=== PATIENT | female | born 1995 | race Caucasian/White ===

== ENCOUNTER 2016-03-12 07:01 | Emergency (ER) | payer OTHER ==
--- NOTE | 2016-03-12 07:16 | ED ---
Skin Complaint - History of Current Complaint Chief Complaint: EDRashSkinAbscess Time Seen by Provider: 03/12/16 07:11 Stated Complaint: BUG BITES ALL OVER Hx Obtained From: Patient, Family/Crust Sorter Hx Last Menstrual Period: 06/13/13 Onset/Duration: Started Days Ago - started last week with "bug bites" on L hip area, very itchy, went to [facility] and was told to use hydrocortisone cream and benadryl, she has use the cream but not the benadryl. those lesions are fading but new ones haev developed randomly on arms/legs/hips. No other family member with saem symps. pt denies new meds, personal care items (except laundry detergent), she is 4 mo preg Timing: Constant - itchy Pain Intensity: 0 Aggravating Symptom(s): Touch Alleviating Symptom(s): OTC Meds - hydrocortisone cream Associated Signs & Symptoms: Negative Related History: Other: - has not seen insects in house or on pets, no new bedding or furniture - Allergy/Home Medications Allergies/Adverse Reactions: Allergies Allergy/AdvReac Type Severity Reaction Status Date / Time Azithromycin [From Zithromax] Allergy Facial And Verified 03/12/16 07:04 Throat Swelling PMH/Surg Hx/FS Hx/Imm Hx Previously Healthy: Yes Endocrine/Hematology History: Denies: Hx Diabetes, Hx Thyroid Disease Cardiovascular History: Denies: Hx Congestive Heart Failure, Hx Hypertension Respiratory History: Denies: Hx Asthma History: Denies: Hx Renal Disease Psychiatric History: Denies: Hx Anxiety, Hx Depression - Immunization History Date of Tetanus Vaccine: UNK Date of Influenza Vaccine: never Infectious Disease History: No Infectious Disease History: Reports: Hx Shingles Denies: Traveled Outside the [place] in Last 30 Days - Family History Known Family History: Negative: Cardiac Disease, Hypertension, Diabetes - Social History Occupation: Unemployed Lives: With Family Alcohol Use: None Hx Substance Use: Yes 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 - Amount & Last Used: daily Hx Tobacco Use: Yes Smoking Status (MU): Heavy Every Day Tobacco Smoker Type: Cigarettes Amount Used/How Often: 1/2 PPD Have You Smoked in the Last Year: Yes Cessation Counseling: Patient Advised to Stop Review of Systems Constitutional: Negative Negative: Fever, Chills Cardiovascular: Negative Negative: Chest Pain Respiratory: Negative Negative: Shortness Of Breath, Cough Gastrointestinal: Negative Negative: Abdominal Pain Genitourinary: Negative Positive: Rash Neurological: Negative Negative: Headache Psychological: Normal All Other Systems Reviewed And Are Negative: Yes Physical Exam Triage Information Reviewed: Yes Vital Signs On Initial Exam: Initial Vitals Temp Pulse Resp BP Pulse Ox 97.1 F 104 16 142/70 100 03/12/16 07:04 03/12/16 07:04 03/12/16 07:04 03/12/16 07:04 03/12/16 07:04 Vital Signs Reviewed: Yes Appearance: Positive: Well-Appearing, No Pain Distress, Well-Nourished Skin: Positive: Warm, Skin Color Reflects Adequate Perfusion, Dry, Other - several individual slightyly raised, erythemic, pruritic circular lesions on legs, arms, hips in no pattern Respiratory/Lung Sounds: Positive: Clear to Auscultation Cardiovascular: Positive: Normal, RRR, Pulses are Symmetrical in both Upper and Lower Extremities Neurological: Positive: Normal, Sensory/Motor Intact, Alert, Oriented to Person Place, Time Psychiatric: Positive: Normal Diagnostics - Vital Signs Vital Signs Temp Pulse Resp BP Pulse Ox 03/12/16 07:04 97.1 F 104 16 142/70 100 - Laboratory Lab Statement: Any lab studies that have been ordered have been reviewed, and results considered in the medical decision making process. Re-Evaluation - Re-Evaluation First Eval Re-Evaluation Time: 08:30 Change: Improved - decreased itching, no new lesions Course/Dx - Differential Diagnoses - Skin Complaint Differential Diagnoses: Contact Dermatitis, Drug Rash, Local Allergic Reaction, Scabies, Urticaria, Other - insect bites - Diagnoses Provider Diagnoses: Allergic reaction Discharge - Discharge Plan Condition: Improved Disposition: HOME Patient Education Materials: Urticaria (ED) Additional Instructions: you may use 25-50mg of benadryl every 6 hours as needed for itchy rash Continue hydrocortisone cream as directed consider changing laundry soap If problem worsens, return here or OB office as needed
[2016-03-12] MEDS ORDERED: diPHENhydraMINE PO* 25 MG PO ONE (07:18)
[2016-03-12 08:55] VITALS: BP 138/67
== END 2016-03-12 08:54 | disposition home or self-care (01) ==
LOC: ED 07:01
DX: T78.40XA Allergy, unspecified, initial encounter (principal); X58.XXXA Exposure to other specified factors, initial encounter; R21 Rash and other nonspecific skin eruption
CPT/HCPCS: 99281; A9270-GY

== ENCOUNTER 2016-03-19 16:40 | Emergency (ER) | payer OTHER ==
[2016-03-19] MEDS ORDERED: Acetaminophen TAB* 325 MG PO ONE (17:26)
--- NOTE | 2016-03-19 17:34 | ED ---
Throat Pain/Nasal Congestion - HPI Summary HPI Summary: 17 week pt here w/ URI sx x 5 days. Started as dry cough and progressed to JANE, mild ST, head/nasal congestion. She has had some Rt sided otalgia past couple of days - worse w/ coughing. Denies fever, chills, N/V/D, ab pain. Props herself up at night. Called mushroom spawn maker who told her she could take robitussin w/ brief relief. Was also told she can take Sudafed and tylenol but has not tried these yet. Pt typically smokes but hasn't since sick - hurts to do so. - History of Current Complaint Chief Complaint: EDUpperRespComplaint Time Seen by Provider: 03/19/16 17:03 Hx Obtained From: Patient, Family/Toll Relief Operator - male partner - Allergies/Home Medications Allergies/Adverse Reactions: Allergies Allergy/AdvReac Type Severity Reaction Status Date / Time Azithromycin [From Zithromax] Allergy Facial And Verified 03/19/16 16:51 Throat Swelling PMH/Surg Hx/FS Hx/Imm Hx Previously Healthy: Yes Endocrine/Hematology History: Denies: Hx Diabetes, Hx Thyroid Disease Cardiovascular History: Denies: Hx Congestive Heart Failure, Hx Hypertension Respiratory History: Denies: Hx Asthma History: Denies: Hx Renal Disease Psychiatric History: Denies: Hx Anxiety, Hx Depression - Immunization History Date of Tetanus Vaccine: UNK Date of Influenza Vaccine: never Infectious Disease History: No Infectious Disease History: Reports: Hx Shingles Denies: Traveled Outside the [place] in Last 30 Days - Family History Known Family History: Negative: Cardiac Disease, Hypertension, Diabetes - Social History Occupation: Unemployed Lives: With Family Alcohol Use: None Hx Substance Use: No Substance Use Type: Reports: None Substance Use Comment - Amount & Last Used: daily Hx Tobacco Use: Yes Smoking Status (MU): Light Every Day Tobacco Smoker Type: Cigarettes Amount Used/How Often: 1/2 PPD Have You Smoked in the Last Year: Yes Review of Systems Constitutional: Negative ENT: Other - see HPI Negative: Chest Pain Positive: Cough Gastrointestinal: Negative Positive: no symptoms reported Musculoskeletal: Negative Negative: Rash Neurological: Negative Psychological: Normal All Other Systems Reviewed And Are Negative: Yes Physical Exam Triage Information Reviewed: Yes Vital Signs On Initial Exam: Initial Vitals Temp Pulse Resp BP Pulse Ox 97.3 F 100 16 135/69 100 03/19/16 16:46 03/19/16 16:46 03/19/16 16:46 03/19/16 16:46 03/19/16 16:46 Vital Signs Reviewed: Yes Appearance: Positive: Well-Appearing, No Pain Distress, Well-Nourished Skin: Positive: Warm - no rash, Dry Head/Face: Positive: Normal Head/Face Inspection - sinuses NTTP Eyes: Positive: Normal, EOMI, Conjunctiva Clear. Negative: Discharge ENT: Positive: Hearing grossly normal, Pharynx normal, Nasal congestion, TMs normal. Negative: Tonsillar swelling, Tonsillar exudate Neck: Positive: Supple, Nontender, No Lymphadenopathy Respiratory/Lung Sounds: Positive: Clear to Auscultation, Breath Sounds Present. Negative: Rales, Rhonchi, Stridor, Wheezes Cardiovascular: Positive: Normal, RRR, S1, S2. Negative: Murmur, Rub Abdomen Description: Positive: Nontender, No Organomegaly, Soft Bowel Sounds: Positive: Present Musculoskeletal: Positive: Normal, Strength/ROM Intact Neurological: Positive: Normal, Sensory/Motor Intact, Alert, Oriented to Person Place, Time, CN Intact II-III Psychiatric: Positive: Normal Diagnostics - Vital Signs Vital Signs Temp Pulse Resp BP Pulse Ox 03/19/16 16:46 97.3 F 100 16 135/69 100 - Laboratory Lab Statement: Any lab studies that have been ordered have been reviewed, and results considered in the medical decision making process. EENT Course/Dx - Course Course Of Treatment: FHR 138 on U/S performed by U/S tech. Pt d/c'd w/ supportive care and reviewed danger s/sx of when to return to ED. Pt and partner voice understanding. - Diagnoses Provider Diagnoses: Viral URI Discharge - Discharge Plan Condition: Stable Disposition: HOME Patient Education Materials: (ED), Upper Respiratory Infection (ED) Referrals: [facility] [Outside] Additional Instructions: You appear to have a viral URI - this may be treated with supportive care. You may try the following to improve symptoms: *Acetaminophen 650mg every 6 hours as needed for pain *Sudafed as recommended by mushroom spawn maker *Nasal wash (netti pot) & throat gargle 2 x day with 8 ounces of warm water + 1/ 4 teaspoon of salt *Warm moist compress along neck for soreness *Drink 60+ ounces of water daily *Sleep 8+ hours per night *Avoid Dairy and sugar *Hot herbal/decaf tea with lemon & honey *Chicken broth (preferably organic, free range chicken) *Humidifier in house, but especially near bed at night *Try a facial steam - ROLA VAPOR RUB MAY BE HARMFUL DURING - CHECK WITH FINAL ASSEMBLY WORKER BEFORE USING Consider taking Vitamin C 1,000mg every day during illness *If you develop worsening of ear pain, drainage from ear, fever, chills, intractable headache, vomiting, diarrhea, ab pain, vaginal bleeding, return to ED
[2016-03-19 19:05] VITALS: BP 110/60
== END 2016-03-19 19:03 | disposition home or self-care (01) ==
LOC: ED 16:40
DX: J06.9 Acute upper respiratory infection, unspecified (principal); R05 Cough; R51 Headache; F17.210 Nicotine dependence, cigarettes, uncomplicated
CPT/HCPCS: 99282; A9270-GY

== ENCOUNTER 2016-04-25 19:56 | Emergency (ER) | payer MEDICAID, OTHER ==
[2016-04-25] MEDS ORDERED: Morphine INJ* 4 MG/ML 1 ML CARPUJECT IV ONE ×2 (20:30)
[2016-04-25] MEDS ORDERED: Morphine INJ* 4 MG/ML 1 ML CARPUJECT ONE ×2 (20:33)
[2016-04-25 20:38] LABS: Hematocrit 40 % (35-47); Hemoglobin 13.5 g/dl (12.0-16.0); Mean Corpuscular HGB Conc 33 g/dl (31-36); Mean Corpuscular Hemoglobin 32 pg (27-31); Mean Corpuscular Volume 94 fL (80-97); Mean Platelet Volume 9 um3 (7.4-10.4); Red Blood Count 4.27 10^6/ul (4.0-5.4); Red Cell Distribution Width 13 % (10.5-15); White Blood Count 13.8 10^3/ul (3.5-10.8)
[2016-04-25 20:49] LABS: Albumin 3.5 g/dL (3.2-5.2); BUN/Creatinine Ratio 11.5 (8-20); C Reactive Protein 19.72 mg/L (< 5.00); Calcium 8.9 mg/dL (8.6-10.3); EGFR African American 157.7 (>60); EGFR Non-African American 122.6 (>60); Globulin 3.4 g/dL (2-4); Potassium 4.1 mmol/L (3.5-5.0); Total Bilirubin 0.2 mg/dL (0.2-1.0); Total Protein 6.9 g/dL (6.4-8.9)
[2016-04-25] MEDS ORDERED: Morphine INJ* 2 MG/ML 1 ML CARPUJECT IV ONE (21:37)
--- NOTE | 2016-04-25 21:59 | RAD ---
Indication: , right lower quadrant pain. COMPARISON: Comparison is made with a prior study from December 24, 2015. TECHNIQUE: Multiple real-time transabdominal images of the pelvis were obtained. FINDINGS: This exam demonstrates a single intrauterine in the cephalic presentation. cardiac activity and limb motion are noted. The heart rate was 139 beats per minute. The placenta was located along the anterior aspect of the body and fundus of the uterus. There is no placenta previa. The amniotic fluid volume appeared to be within normal limits. The cervix measured 3.3 cm in length. Biparietal diameter (cm): 5.63 23 weeks 2 days Head circumference (cm): 20.59 22 weeks 5 days Abdominal circumference (cm): 17.65 22 weeks 4 days Femur length (cm): 4.08 23 weeks 2 days The composite estimated gestational age was 22 weeks 6 days. The estimated gestational age by the prior ultrasound study is 22 weeks 4 days. Therefore there has been appropriate interval growth. The estimated date of delivery is August 22, 2016. The estimated weight at this time is 540 grams plus or minus 79 grams. The anatomy was not examined on this limited urgent study. Images of the right lower quadrant were obtained. The appendix was not visualized. The right ovary measured 4.3 x 2.0 x 2.1 cm. There is normal vascular flow within the right ovary. The left ovary measured 2.4 x 0.9 x 2.1 cm. The patient was not compliant for the Doppler study of the left ovary. The left ovary appear normal. No free to peritoneal fluid is noted. IMPRESSION: 1. THERE IS A SINGLE INTRAUTERINE IN THE CEPHALIC PRESENTATION WITH A COMPOSITE ESTIMATED GESTATIONAL AGE OF 22 WEEKS 6 DAYS DEMONSTRATING APPROPRIATE INTERVAL GROWTH FROM THE PRIOR STUDY. 2. THE APPENDIX WAS NOT VISUALIZED. 3. THE OVARIES APPEAR TO BE WITHIN NORMAL LIMITS.
[2016-04-25 22:41] LABS: Urine Bacteria Absent (Absent); Urine Bilirubin Negative (Negative); Urine Glucose Negative (Negative); Urine Nitrite Negative (Negative)
--- NOTE | 2016-04-25 22:52 | RAD ---
INDICATION: Right flank abdominal pain. COMPARISON: Comparison is made with a prior CT of the abdomen and pelvis from July 30, 2015. TECHNIQUE: Multiple real-time images of the right kidney were obtained. FINDINGS: The right kidney is normal in size shape and echogenicity. The kidney measured 11.0 x 5.4 x 7.0 cm. There is dilatation of the right renal calyces and pelvis consistent with mild hydronephrosis. Note is made of a right ureteral jet within the bladder. No calculi are seen. IMPRESSION: MILD RIGHT HYDRONEPHROSIS.
[2016-04-25] MEDS ORDERED: Cephalexin CAP* 500 MG PO ONE (23:30)
[2016-04-25 23:56] VITALS: BP 135/62
--- NOTE | 2016-04-26 00:23 | ED ---
- HPI Summary HPI Summary: Patient is a 22 week female arrives to ED with CC of RLQ pain. Patient is very distressed on arrival and crying. She is unable to communicate and history is obtained from mother and boyfriend. Mother notes patient awoke from a nap with 10/10 severe right lower quadrant pain which has been constant. She denied any urinary symptoms, epigastric or suprapubic pain, fever, JANE, N/V /C/D. Patient is obese but otherwise healthy. Denies drug use. Patient denies surgical history. - History of Current Complaint Chief Complaint: EDAbdPain Stated Complaint: ABD PAIN/ 23 WKS PREG Time Seen by Provider: 04/25/16 20:11 Hx Obtained From: Patient Chief Complaint: Pain Onset/Duration: Started Minutes Ago Timing: Constant Severity: Severe Current Severity: Severe Pain Intensity: 10 Location of Pain: Right Side Character: Cramping, Tearing Aggravating Factors: Movement Associated Signs and Symptoms: Positive: Back Pain - Assessment Hx Now: No - Allergies/Home Medications Allergies/Adverse Reactions: Allergies Allergy/AdvReac Type Severity Reaction Status Date / Time Azithromycin [From Zithromax] Allergy Facial And Verified 04/25/16 20:01 Throat Swelling PMH/Surg Hx/FS Hx/Imm Hx Previously Healthy: Yes Endocrine/Hematology History: Denies: Hx Diabetes, Hx Thyroid Disease Cardiovascular History: Denies: Hx Congestive Heart Failure, Hx Hypertension Respiratory History: Denies: Hx Asthma History: Denies: Hx Renal Disease Psychiatric History: Denies: Hx Anxiety, Hx Depression - Immunization History Date of Tetanus Vaccine: UNK Date of Influenza Vaccine: never Infectious Disease History: No Infectious Disease History: Reports: Hx Shingles Denies: Traveled Outside the [place] in Last 30 Days - Family History Known Family History: Negative: Cardiac Disease, Hypertension, Diabetes - Social History Occupation: Unemployed Lives: With Family Alcohol Use: None Hx Substance Use: No Substance Use Type: Reports: None Substance Use Comment - Amount & Last Used: daily Hx Tobacco Use: Yes Smoking Status (MU): Light Every Day Tobacco Smoker Type: Cigarettes Amount Used/How Often: 1/2 PPD Have You Smoked in the Last Year: Yes Review of Systems Constitutional: Negative ENT: Negative Cardiovascular: Negative Respiratory: Negative Positive: Abdominal Pain Positive: no symptoms reported, see HPI Musculoskeletal: Negative Skin: Negative Positive: Anxious All Other Systems Reviewed And Are Negative: Yes Physical Exam - Physical Exam Triage Information Reviewed: Yes Vital Signs Reviewed: Yes Appearance: Positive: Ill-Appearing, Pain Distress, Obese Skin: Positive: Warm, Skin Color Reflects Adequate Perfusion, Diaphoretic Head/Face: Positive: Normal Head/Face Inspection Eyes: Positive: GLENN, Conjunctiva Clear Neck: Positive: Supple, No Lymphadenopathy Respiratory/Lung Sounds: Positive: Clear to Auscultation Cardiovascular: Positive: RRR Abdomen Description: Positive: Soft, CVA Tenderness (R), Other: - tenderness over RLQ Bowel Sounds: Positive: Present Musculoskeletal: Positive: Normal, Strength/ROM Intact Neurological: Positive: Sensory/Motor Intact, Alert, Oriented to Person Place, Time, Speech Normal Psychiatric: Positive: Normal AVPU Assessment: Alert Diagnostics - Vital Signs Vital Signs Temp Pulse Resp BP Pulse Ox 04/25/16 23:54 99.2 F 78 16 135/62 04/25/16 21:56 20 04/25/16 21:00 72 98 04/25/16 20:35 20 04/25/16 20:07 84 121/57 98 04/25/16 20:03 87 98 04/25/16 20:01 99.2 F 80 18 118/72 98 - Laboratory Lab Results: Lab Results 04/25/16 04/25/16 04/25/16 Range/Units 20:14 20:14 22:20 WBC 13.8 H (3.5-10.8) 10^3/ul RBC 4.27 (4.0-5.4) 10^6/ul Hgb 13.5 (12.0-16.0) g/dl Hct 40 (35-47) % MCV 94 (80-97) fL MCH 32 H (27-31) pg MCHC 33 (31-36) g/dl RDW 13 (10.5-15) % Plt Count 189 (150-450) 10^3/ul MPV 9 (7.4-10.4) um3 Neut % (Auto) 71.2 (38-83) % Lymph % (Auto) 22.0 L (25-47) % [place] % (Auto) 5.6 (1-9) % Eos % (Auto) 0.9 (0-6) % Baso % (Auto) 0.3 (0-2) % Absolute Neuts (auto) 9.8 H (1.5-7.7) 10^3/ul Absolute Lymphs (auto) 3.0 (1.0-4.8) 10^3/ul Absolute Monos (auto) 0.8 (0-0.8) 10^3/ul Absolute Eos (auto) 0.1 (0-0.6) 10^3/ul Absolute Basos (auto) 0 (0-0.2) 10^3/ul Absolute Nucleated RBC 0.01 10^3/ul Nucleated RBC % 0 Sodium 131 L (133-145) mmol/L Potassium 4.1 (3.5-5.0) mmol/L Chloride 102 (101-111) mmol/L Carbon Dioxide 25 (22-32) mmol/L Anion Gap 4 (2-11) mmol/L BUN 7 (6-24) mg/dL Creatinine 0.61 (0.51-0.95) mg/dL Est GFR ( Amer) 157.7 (>60) Est GFR (Non-Af Amer) 122.6 (>60) BUN/Creatinine Ratio 11.5 (8-20) Glucose 86 (70-100) mg/dL Calcium 8.9 (8.6-10.3) mg/dL Total Bilirubin 0.20 (0.2-1.0) mg/dL AST 8 L (13-39) U/L ALT 7 (7-52) U/L Alkaline Phosphatase 81 (34-104) U/L Total Creatine Kinase 20 (10-223) U/L C-Reactive Protein 19.72 H (< 5.00) mg/L Total Protein 6.9 (6.4-8.9) g/dL Albumin 3.5 (3.2-5.2) g/dL Globulin 3.4 (2-4) g/dL Albumin/Globulin Ratio 1.0 (1-3) Lipase 13 (11.0-82.0) U/L Urine Color Yellow Urine Appearance Cloudy Urine pH 6.0 (5-9) Ur Specific [place] 1.017 (1.010-1.030) Urine Protein Negative (Negative) Urine Ketones Negative (Negative) Urine Blood 1+ H (Negative) Urine Nitrate Negative (Negative) Urine Bilirubin Negative (Negative) Urine Urobilinogen Negative (Negative) Ur Leukocyte Esterase 1+ H (Negative) Urine WBC (Auto) 1+(6-10/hpf) H (Absent) Urine RBC (Auto) 3+(>10/hpf) H (Absent) Ur Squamous Epith Cells Present H (Absent) Urine Bacteria Absent (Absent) Urine Glucose Negative (Negative) Result Diagrams: 04/25/16 20:14 04/25/16 20:14 Lab Statement: Any lab studies that have been ordered have been reviewed, and results considered in the medical decision making process. - Ultrasound No standard instances Ultrasound Interpretation: Positive (See Comments) Ultrasound Interpretation Completed By: Radiologist - Transvaginal US: IMPRESSION: 1. THERE IS A SINGLE INTRAUTERINE IN THE CEPHALIC PRESENTATION WITH A COMPOSITE ESTIMATED GESTATIONAL AGE OF 22 WEEKS 6 DAYS DEMONSTRATING APPROPRIATE INTERVAL GROWTH FROM THE PRIOR STUDY. 2. THE APPENDIX WAS NOT VISUALIZED. 3. THE OVARIES APPEAR TO BE WITHIN NORMAL LIMITS. Renal US : IMPRESSION: MILD RIGHT HYDRONEPHROSIS. Course/Dx - Course Course Of Treatment: Patient yelling in pain for 1 hour after arrival despite 4mg morphine. 2mg morphine more given then Lars consult at 9:30p via phone. US shows IUP 22 weeks 6 days. Renal US shows mild right sided hydronephrosis consistent with . UA shows 1+ leuks, 3+ RBC. Will treat with keflext 500mg QID x [address] Sousa, OBGYN. Dr. Sousa consulted at 11pm. Patient is feeling better and ready to be DC'd home with urine strain and abx. Renal stone not visualized but based on patients symptoms of CVA tenderness and RLQ, this is likely. OB follow up. Patient agrees. - Differential Diagnosis/HQI/PQRI: Threatened , Ovarian Cyst, Ovarian Torsion, Renal Colic, UTI - Diagnoses Provider Diagnoses: Right lower quadrant abdominal pain Discharge - Discharge Plan Condition: Stable Disposition: HOME Prescriptions: Cephalexin CAP* [Keflex CAP*] 500 mg PO QID #28 cap Patient Education Materials: Hydronephrosis (ED), Urinary Tract Infection in (ED) Referrals: No Primary Care Phys,NOPCP [Primary Care Provider] - Additional Instructions: Dx. Urinary Tract Infection Drink plenty of fluids. Supplement with cranberry or danielle juice. You may also take an over the counter cranberry supplement. If you have any questions about this, you may ask your pharmacist. If your symptoms have not improved in 1-2 days, if you develop fever, sweats or chills, please go to your emergency room, or call your PCP. Antibiotics were prescribed to you. Please take as directed. Supplement with over the counter probiotics on the opposite schedule of your antibiotic to prevent secondary infections. Do not take together as they may counteract each other.
== END 2016-04-25 23:54 | disposition home or self-care (01) ==
LOC: ED 19:56
DX: N13.30 Unspecified hydronephrosis (principal); R10.31 Right lower quadrant pain; M54.9 Dorsalgia, unspecified; F41.9 Anxiety disorder, unspecified; F17.209 Nicotine dependence, unspecified, with unspecified nicotine-induced disorders
CPT/HCPCS: 36415; 76775; 76815; 80053; 81003; 81015; 82550; 83690; 85025; 86140; 87086; 96374; 96376; 99283; A9270-GY; J2270

== ENCOUNTER 2016-06-28 12:25 | Emergency (ER) | payer OTHER ==
[2016-06-28 12:31] VITALS: BP 132/71
== END 2016-06-28 14:08 | disposition left against medical advice (07) ==
LOC: ED 12:25
DX: M79.602 Pain in left arm (principal); Z53.21 Procedure and treatment not carried out due to patient leaving prior to being seen by health care provider

== ENCOUNTER 2016-07-07 01:15 | Emergency (ER) | payer OTHER ==
--- NOTE | 2016-07-07 01:57 | ED ---
Chava Smith Benjamin, scribed for Tru Cortez MD on 07/07/16 at 0156 . GI/ HPI - HPI Summary HPI Summary: 34 weeks 21yo female c/o hemorrhoids. Pt has had hemorrhoids for 2 months now and came to ED tonight because her pain has worsened. - History of Current Complaint Chief Complaint: EDRectalPain Time Seen by Provider: 07/07/16 01:48 Stated Complaint: HEMMOROIDS Hx Obtained From: Patient Onset/Duration: Started Weeks Ago, Worse Since - tonight Timing: Constant Severity: Mild Current Severity: Moderate Pain Intensity: 9 Location of Pain: Rectal Associated Signs and Symptoms: Positive: Negative - Allergy/Home Medications Allergies/Adverse Reactions: Allergies Allergy/AdvReac Type Severity Reaction Status Date / Time Azithromycin [From Zithromax] Allergy Facial And Verified 07/07/16 01:19 Throat Swelling PMH/Surg Hx/FS Hx/Imm Hx Endocrine/Hematology History: Denies: Hx Diabetes, Hx Thyroid Disease Cardiovascular History: Denies: Hx Congestive Heart Failure, Hx Hypertension Respiratory History: Denies: Hx Asthma History: Denies: Hx Renal Disease Psychiatric History: Denies: Hx Anxiety, Hx Depression - Immunization History Date of Tetanus Vaccine: UNK Date of Influenza Vaccine: never Infectious Disease History: No Infectious Disease History: Reports: Hx Shingles Denies: Traveled Outside the [place] in Last 30 Days - Family History Known Family History: Negative: Cardiac Disease, Hypertension, Diabetes - Social History Occupation: Employed Full-time Lives: With Family Alcohol Use: None Hx Substance Use: No Substance Use Type: Reports: None Substance Use Comment - Amount & Last Used: daily Hx Tobacco Use: Yes Smoking Status (MU): Former Smoker Type: Cigarettes Amount Used/How Often: 1/2 PPD Have You Smoked in the Last Year: Yes Review of Systems Constitutional: Negative Eyes: Negative ENT: Negative Cardiovascular: Negative Respiratory: Negative Positive: Other - hemorrhoids Genitourinary: Other - 34 weeks Musculoskeletal: Negative Skin: Negative Neurological: Negative Psychological: Normal All Other Systems Reviewed And Are Negative: Yes Physical Exam Triage Information Reviewed: Yes Vital Signs On Initial Exam: Initial Vitals Temp Pulse Resp BP Pulse Ox 97.2 F 109 18 148/71 99 07/07/16 01:19 07/07/16 01:19 07/07/16 01:19 07/07/16 01:19 07/07/16 01:19 Vital Signs Reviewed: Yes Appearance: Positive: Well-Appearing, No Pain Distress Skin: Positive: Warm Head/Face: Positive: Normal Head/Face Inspection Eyes: Positive: GLENN ENT: Positive: Hearing grossly normal Respiratory/Lung Sounds: Positive: Breath Sounds Present Abdomen Description: Positive: Other: - external non thrombosed hemmorhoids Neurological: Positive: Sensory/Motor Intact, Normal Gait Diagnostics - Vital Signs Vital Signs Temp Pulse Resp BP Pulse Ox 07/07/16 01:19 97.2 F 109 18 148/71 99 - Laboratory Lab Statement: Any lab studies that have been ordered have been reviewed, and results considered in the medical decision making process. GIGU Course/Dx - Diagnoses Provider Diagnoses: Hemorrhoids Discharge - Discharge Plan Condition: Stable Disposition: HOME Prescriptions: Hydrocortisone SUPP* [Anusol HC Supp*] 25 mg CA BID #10 supp Patient Education Materials: Hemorrhoids (ED) Referrals: Raya Spence MD [Primary Care Provider] - The documentation as recorded by the Chava tatum Benjamin accurately reflects the service I personally performed and the decisions made by Dana esqueda David, MD.
[2016-07-07 03:20] VITALS: BP 126/69
== END 2016-07-07 02:00 | disposition home or self-care (01) ==
LOC: ED 01:15
DX: K64.9 Unspecified hemorrhoids (principal); Z87.891 Personal history of nicotine dependence
CPT/HCPCS: 99282

== ENCOUNTER 2016-08-09 20:30 | Emergency (ER) | payer OTHER ==
[2016-08-09 20:35] VITALS: BP 159/87
--- NOTE | 2016-08-09 20:59 | ED ---
vahe Smith Timothy, scribed for Tru Cortez MD on 08/09/16 at 2058 . Medical Screening - HPI Summary HPI Summary: Josi Beyer is a 21 yo female presenting to [facility] 39 weeks with intermittent 10/10 abdominal and back pain every few minutes since 1400 today. Her MHx includes shingles and tobacco use, as well as current 39 week . - History of Current Complaint Chief Complaint: EDAbdPain Stated Complaint: 39 WEEKS IN LABOR Time Seen by Provider: 08/09/16 20:31 Onset/Duration: Started Hours Ago, Atraumatic, Still Present Severity: moderate Associated Signs and Symptoms: Other - intermittent every few minutes, 39 weeks PMH/Surg Hx/FS Hx/Imm Hx Endocrine/Hematology History: Denies: Hx Diabetes, Hx Thyroid Disease Cardiovascular History: Denies: Hx Congestive Heart Failure, Hx Hypertension Respiratory History: Denies: Hx Asthma History: Denies: Hx Renal Disease Psychiatric History: Denies: Hx Anxiety, Hx Depression - Immunization History Date of Tetanus Vaccine: UNK Date of Influenza Vaccine: never Infectious Disease History: Reports: Hx Shingles Denies: Traveled Outside the [place] in Last 30 Days - Family History Known Family History: Negative: Cardiac Disease, Hypertension, Diabetes - Social History Alcohol Use: None Hx Substance Use: No Substance Use Type: Reports: None Substance Use Comment - Amount & Last Used: daily Hx Tobacco Use: Yes Smoking Status (MU): Heavy Every Day Tobacco Smoker Type: Cigarettes Amount Used/How Often: 1/2 PPD Have You Smoked in the Last Year: Yes Review of Systems Constitutional: Negative Eyes: Negative ENT: Negative Cardiovascular: Negative Respiratory: Negative Positive: Abdominal Pain - intermittent abd and back pain every few minutes Genitourinary: Negative Musculoskeletal: Negative Skin: Negative Neurological: Negative Psychological: Normal All Other Systems Reviewed And Are Negative: Yes Physical Exam Triage Information Reviewed: Yes Vital Signs On Initial Exam: Initial Vitals Temp Pulse Resp BP Pulse Ox 97.3 F 110 18 159/87 98 08/09/16 20:32 08/09/16 20:32 08/09/16 20:32 08/09/16 20:32 08/09/16 20:32 Vital Signs Reviewed: Yes Appearance: Positive: Well-Appearing, Pain Distress - crampy abd pain Diagnostics - Vital Signs Vital Signs Temp Pulse Resp BP Pulse Ox 08/09/16 20:32 97.3 F 110 18 159/87 98 - Laboratory Lab Statement: Any lab studies that have been ordered have been reviewed, and results considered in the medical decision making process. Course/Dx - Course Assessment/Plan: Josi Dwyer is a 21 yo female 39 weeks presenting to [facility] with 10/10 intermittent back and abd pain every few minutes. Pt medication list reviewed this visit. After clinical examination and discussion with Dr. Leonard, she will be sent to L&D - Diagnoses Provider Diagnoses: Labor abnormal - Physician Notifications Discussed Care Of Patient With: Desean Leonard - Discussed Pt condition, recommends immediate admission for labor Time Discussed With Above Provider: 20:35 Discharge - Discharge Plan Condition: Stable Disposition: OTHER Discharge Disposition Comment: L&D Referrals: Raya Spence MD [Primary Care Provider] - The documentation as recorded by the vahe tatum Timothy accurately reflects the service I personally performed and the decisions made by me, Tru Cortez MD.
== END 2016-08-09 21:00 ==
LOC: ED 20:30
DX: O62.9 Abnormality of forces of labor, unspecified (principal); R10.9 Unspecified abdominal pain; Z3A.39 39 weeks gestation of pregnancy; F17.210 Nicotine dependence, cigarettes, uncomplicated
CPT/HCPCS: 99281

== ENCOUNTER 2016-08-30 19:00 | Inpatient (IN) | payer OTHER ==
[2016-08-30] MEDS ORDERED: Dinoprostone* 10 MG VAG.SUPP VAGINAL ONE (19:04)
[2016-08-30] MEDS ORDERED: Zolpidem TAB* 5 MG PO PRN (19:50)
[2016-08-31] MEDS ORDERED: Promethazine INJ(RESTRICTED)* 25 MG/ML 1 ML VIAL IV ONE (02:57)
[2016-08-31] MEDS ORDERED: Nalbuphine* 20 MG/ML 1 ML VIAL IM ONE (02:57)
[2016-08-31] MEDS ORDERED: Promethazine INJ(RESTRICTED)* 25 MG/ML 1 ML VIAL IM ONE (02:57)
[2016-08-31] MEDS ORDERED: Nalbuphine* 20 MG/ML 1 ML VIAL IV ONE (02:57)
[2016-08-31] MEDS ORDERED: Nalbuphine* 20 MG/ML 1 ML VIAL ONE (03:02)
[2016-08-31] MEDS ORDERED: Promethazine INJ(RESTRICTED)* 25 MG/ML 1 ML VIAL ONE (03:02)
[2016-08-31] MEDS ORDERED: Lidocaine 1% MPF* 2 ML VIAL ONE (07:39)
[2016-08-31] MEDS ORDERED: Oxytocin in LR* 20 UNITS/1,000 ML BAG IVPB SCH ×3 (08:00→20:19)
[2016-08-31 08:13] LABS: Hematocrit 41 % (35-47); Hemoglobin 13.4 g/dl (12.0-16.0); Mean Corpuscular HGB Conc 33 g/dl (31-36); Mean Corpuscular Hemoglobin 30 pg (27-31); Mean Corpuscular Volume 92 fL (80-97); Mean Platelet Volume 10 um3 (7.4-10.4); Red Blood Count 4.43 10^6/ul (4.0-5.4); Red Cell Distribution Width 14 % (10.5-15); White Blood Count 13.6 10^3/ul (3.5-10.8)
[2016-08-31] MEDS ORDERED: OBEPIDURAL* 250 ML ONE (14:04)
[2016-08-31] MEDS ORDERED: Bupivacaine 0.25% SDV* 30 ML ONE (14:16)
[2016-08-31] MEDS ORDERED: fentaNYL* 50 MCG/ML 2 ML VIAL (100 MCG VIAL) ONE (14:24)
[2016-08-31] MEDS ORDERED: Famotidine TAB* 20 MG PO PRN (14:39)
[2016-08-31] MEDS ORDERED: Sodium Citrate/Citric Acid* 15 ML UDC PO PRN (14:39)
[2016-08-31] MEDS ORDERED: EPHEDrine (Pressors)* 50 MG/ML VIAL IV PUSH PRN (14:39)
[2016-08-31] MEDS ORDERED: Phenylephrine IV* 40 MCG/ML 10 ML SYRINGE IV PUSH PRN (14:39)
[2016-08-31] MEDS ORDERED: OBEPIDURAL* 250 ML EPIDURAL SCH (15:00)
[2016-08-31] MEDS ORDERED: Acetaminophen TAB* 325 MG PO PRN (20:16)
[2016-08-31] MEDS ORDERED: Glycerin ADULT SUPP PR PRN (20:16)
[2016-08-31] MEDS ORDERED: Dibucaine 1% 28.35 GM TUBE PR PRN (20:16)
[2016-08-31] MEDS ORDERED: oxyCODONE/Acetamin 5/325 MG* TAB PO PRN (20:16)
[2016-08-31] MEDS ORDERED: Witch Hazel PAD* JAR TOPICAL PRN (20:16)
[2016-08-31] MEDS: Ibuprofen TAB* 600 MG PO PRN (22:29)
[2016-08-31] MEDS: Docusate CAP* 100 MG PO SCH (22:29)
[2016-09-01 06:51] LABS: Hematocrit 35 % (35-47); Hemoglobin 11.7 g/dl (12.0-16.0); Mean Corpuscular HGB Conc 33 g/dl (31-36); Mean Corpuscular Hemoglobin 31 pg (27-31); Mean Corpuscular Volume 92 fL (80-97); Mean Platelet Volume 9 um3 (7.4-10.4); Red Blood Count 3.82 10^6/ul (4.0-5.4); Red Cell Distribution Width 14 % (10.5-15); White Blood Count 14.8 10^3/ul (3.5-10.8)
[2016-09-01] MEDS: Ibuprofen TAB* 600 MG PO PRN ×2 (06:58→19:29)
[2016-09-01] MEDS: Docusate CAP* 100 MG PO SCH ×2 (07:00→19:30)
[2016-09-01] MEDS ORDERED: Ferrous Gluconate TAB* 324 MG TAB PO SCH (09:00)
[2016-09-02] MEDS: Ibuprofen TAB* 600 MG PO PRN ×2 (02:49→09:17)
[2016-09-02 08:22] VITALS: BP 111/51
[2016-09-02] MEDS: Docusate CAP* 100 MG PO SCH (09:17)
== END 2016-09-02 11:00 | disposition home or self-care (01) | DRG 560 ==
LOC: MCHOBOUT 19:00 → MCHOB 19:06
PROVIDERS: ADMIT Nurse Practitioner; ATTEND Nurse Practitioner
PROC: 4A1HX4Z Monitoring of Products of Conception, Cardiac Electrical Activity, External Approach (ICD-10-PCS; principal; 2016-08-30)
PROC: 10E0XZZ Delivery of Products of Conception, External Approach (ICD-10-PCS; 2016-08-30)
PROC: 10907ZC Drainage of Amniotic Fluid, Therapeutic from Products of Conception, Via Natural or Artificial Opening (ICD-10-PCS; 2016-08-30)
PROC: 10907ZC Drainage of Amniotic Fluid, Therapeutic from Products of Conception, Via Natural or Artificial Opening (ICD-10-PCS; 2016-08-30)
PROC: 3E033VJ Introduction of Other Hormone into Peripheral Vein, Percutaneous Approach (ICD-10-PCS; 2016-08-30)
DX: O48.0 Post-term pregnancy (principal); F17.200 Nicotine dependence, unspecified, uncomplicated; Z3A.41 41 weeks gestation of pregnancy; O69.81X0 Labor and delivery complicated by cord around neck, without compression, not applicable or unspecified; O99.334 Smoking (tobacco) complicating childbirth; Z37.0 Single live birth; O75.89 Other specified complications of labor and delivery; K64.9 Unspecified hemorrhoids; Z88.1 Allergy status to other antibiotic agents; O71.82 Other specified trauma to perineum and vulva
CPT/HCPCS: 36415; 85025; 85027; 86850; 86900; 86901; A9270-GY; J2300; J2550; J3010

== ENCOUNTER 2016-10-01 03:06 | Emergency (ER) | payer OTHER ==
[2016-10-01 03:10] VITALS: BP 119/70
== END 2016-10-01 03:50 | disposition left against medical advice (07) ==
LOC: ED 03:06
DX: N93.9 Abnormal uterine and vaginal bleeding, unspecified (principal); Z53.21 Procedure and treatment not carried out due to patient leaving prior to being seen by health care provider

== ENCOUNTER 2016-12-06 19:02 | Emergency (ER) | payer OTHER ==
[2016-12-06 21:29] VITALS: BP 123/84
== END 2016-12-06 21:47 | disposition left against medical advice (07) ==
LOC: ED 19:02
DX: R10.9 Unspecified abdominal pain (principal); Z53.21 Procedure and treatment not carried out due to patient leaving prior to being seen by health care provider

== ENCOUNTER 2017-08-24 16:44 | Emergency (ER) | payer MEDICAID, OTHER ==
[2017-08-24 16:55] VITALS: BP 114/78
--- NOTE | 2017-08-24 16:57 | UC ---
Dental HPI - HPI Summary HPI Summary: 22 yo female presents with headache secondary to dental pain. She tells me that 2 days ago she developed pain in her left upper tooth that was mild. Has since gotten progressively worse causing pain to radiate up her jaw and into the left side of her head causing her to have a "mini-migraine". She has taken tylenol and ibuprofen which help a very little bit. She does have a dentist, but cannot see them until september. Denies fever, chills, SOB, chest pain, dizziness, vision changes, hearing changes, or weakness. - History of Current Complaint Chief Complaint: UCDentalProblem Stated Complaint: HEADACHE Time Seen by Provider: 08/24/17 16:57 Hx Obtained From: Patient Hx Last Menstrual Period: [id number] Onset/Duration: Gradual Onset Severity: Severe Pain Intensity: 8 Pain Scale Used: 0-10 Numeric - Allergies/Home Medications Allergies/Adverse Reactions: Allergies Allergy/AdvReac Type Severity Reaction Status Date / Time azithromycin Allergy Facial Verified 08/24/17 16:56 Redness/Flushing PMH/Surg Hx/FS Hx/Imm Hx - Additional Past Medical History Additional PMH: Migraines Previously Healthy: Yes - Surgical History Surgical History: None - Family History Known Family History: Negative: Cardiac Disease, Hypertension, Diabetes - Social History Occupation: Employed Full-time Lives: With Family Alcohol Use: None Substance Use Type: None Substance Use Comment - Amount & Last Used: daily Smoking Status (MU): Light Every Day Tobacco Smoker Type: Cigarettes Amount Used/How Often: 1/2 PPD Length of Time of Smoking/Using Tobacco: "years" Have You Smoked in the Last Year: Yes Household Exposure Type: Cigarettes - Immunization History Most Recent Influenza Vaccination: unknown Most Recent Pneumonia Vaccination: unsure Vaccination Up to Date: Yes Review of Systems Constitutional: Negative Skin: Negative Eyes: Negative ENT: Dental Pain Respiratory: Negative Cardiovascular: Negative Neurovascular: Negative Neurological: Headache Psychological: Negative All Other Systems Reviewed And Are Negative: Yes Physical Exam - Summary Physical Exam Summary: GENERAL: NAD. Obese. No pain distress. SKIN: No rashes, sores, lesions, or open wounds. HEENT: Head: AT/NC Eyes: PERRLA. EOM intact. Conjunctiva clear without inflammation or discharge. Ears: Hearing grossly normal. TMs intact, no bulging, erythema, or edema. Nose: Nasal mucosa pink and moist. NTTP maxillary and frontal sinus. Throat: Posterior oropharynx without exudates, erythema, or tonsillar enlargement. Uvula midline. NECK: Supple. Nontender. No lymphadenopathy. CHEST: CTAB. No r/r/w. No accessory muscle use. Breathing comfortably and in no distress. CV: RRR. Without m/r/g. Pulses intact. Brisk cap refill. NEURO: Alert. CN II-XII grossly intact. PSYCH: Age appropriate behavior. Triage Information Reviewed: Yes Vital Signs: Initial Vital Signs Temp 97.6 F 08/24/17 16:49 Pulse 80 08/24/17 16:49 Resp 16 08/24/17 16:49 BP 114/78 08/24/17 16:49 Pulse Ox 100 08/24/17 16:49 Dental: Positive: Percussion Tenderness @ - tooth #12, Dental Fracture @ - Lower left wisdom tooth, Abscess @ - tooth #12. Negative: Cellulitis @, Cervical Lymphadenopathy, Bleeding Dental Complaint Course/Dx - Course Course Of Treatment: Dental abscess tooth #12. Rx for amoxicillin and tramadol for pain. iSTOP: Reference #: [id number] - Differential Dx/Diagnosis Provider Diagnoses: Dental abscess tooth #12 Discharge - Sign-Out/Discharge Documenting (check all that apply): Patient Departure - Discharge Plan Condition: Stable Disposition: HOME Prescriptions: Amoxicillin PO (*) [Amoxicillin 500 MG CAP*] 500 mg PO Q12H #14 cap traMADol TAB* [Ultram*] 50 mg PO Q12H PRN #8 tab MDD 2 PRN Reason: Pain Patient Education Materials: Dental Abscess (ED), Toothache (ED) Referrals: Raya Spence MD [Primary Care Provider] - Additional Instructions: If you develop a fever, shortness of breath, chest pain, new or worsening symptoms - please call your PCP or go to the ED. - Billing Disposition and Condition Condition: STABLE Disposition: Home
== END 2017-08-24 17:10 | disposition home or self-care (01) ==
LOC: UCEAST 16:44
DX: K04.7 Periapical abscess without sinus (principal); R51 Headache; Z88.1 Allergy status to other antibiotic agents; F17.210 Nicotine dependence, cigarettes, uncomplicated
CPT/HCPCS: 99212; G0463

== ENCOUNTER 2017-09-20 19:23 | Emergency (ER) | payer MEDICAID ==
[2017-09-20] MEDS ORDERED: Penicillin VK TAB* 250 MG PO ONE (20:28)
--- NOTE | 2017-09-20 20:36 | ED ---
Throat Pain/Nasal Congestion - HPI Summary HPI Summary: 22 female presents to ER with complaints of tooth pain has been ongoing for the past couple weeks however for the past couple days it has increased. States he she has tried Tylenol and ibuprofen onxr-kga-[id number] without relief. Denies any known trauma or injury to her teeth. Did recently just have similar pain that was treated with antibiotics and pain medication that did give her relief. States the tooth that is affected now it is a different tooth. Denies drainage, fever, nausea or vomiting. No other complaints at this time. No past medical history - History of Current Complaint Chief Complaint: EDDentalPain Time Seen by Provider: 09/20/17 20:10 Hx Obtained From: Patient Onset/Duration: Sudden Onset, Lasting Days Severity: Moderate Cough: None - Allergies/Home Medications Allergies/Adverse Reactions: Allergies Allergy/AdvReac Type Severity Reaction Status Date / Time azithromycin Allergy Facial Verified 08/24/17 16:56 Redness/Flushing PMH/Surg Hx/FS Hx/Imm Hx Endocrine/Hematology History: Denies: Hx Diabetes, Hx Thyroid Disease Cardiovascular History: Denies: Hx Congestive Heart Failure, Hx Hypertension Respiratory History: Denies: Hx Asthma History: Denies: Hx Renal Disease Psychiatric History: Denies: Hx Anxiety, Hx Depression - Immunization History Date of Tetanus Vaccine: UNK Date of Influenza Vaccine: never Immunizations Up to Date: Yes Infectious Disease History: No Infectious Disease History: Reports: Hx Shingles Denies: Traveled Outside the [place] in Last 30 Days - Family History Known Family History: Negative: Cardiac Disease, Hypertension, Diabetes - Social History Alcohol Use: None Hx Substance Use: No Substance Use Type: Reports: None Substance Use Comment - Amount & Last Used: daily Hx Tobacco Use: Yes Smoking Status (MU): Light Every Day Tobacco Smoker Type: Cigarettes Amount Used/How Often: 1/2 PPD Length of Time of Smoking/Using Tobacco: "years" Have You Smoked in the Last Year: Yes Review of Systems Constitutional: Negative Positive: Dental Pain Cardiovascular: Negative Respiratory: Negative Gastrointestinal: Negative Skin: Negative All Other Systems Reviewed And Are Negative: Yes Physical Exam Triage Information Reviewed: Yes Vital Signs On Initial Exam: Initial Vitals Temp Pulse Resp BP Pulse Ox 98.1 F 74 22 149/101 97 09/20/17 19:24 09/20/17 19:24 09/20/17 19:24 09/20/17 19:24 09/20/17 19:24 Vital Signs Reviewed: Yes Appearance: Positive: Well-Appearing, No Pain Distress, Well-Nourished Skin: Positive: Warm, Skin Color Reflects Adequate Perfusion, Dry Head/Face: Positive: Normal Head/Face Inspection Eyes: Positive: Normal, EOMI, GLENN ENT: Positive: Normal ENT inspection, Hearing grossly normal, Pharynx normal, TMs normal. Negative: Nasal congestion, Nasal drainage Dental: Positive: Gross Decay/Caries @, Cervical Lymphadenopathy, Other - Appears to be dental caries behind tooth #9 with tenderness and surrounding erythema Neck: Positive: Supple, Nontender Respiratory/Lung Sounds: Positive: Clear to Auscultation, Breath Sounds Present. Negative: Rales, Rhonchi, Wheezes Cardiovascular: Positive: Normal, RRR, Pulses are Symmetrical in both Upper and Lower Extremities. Negative: Murmur, Rub Musculoskeletal: Positive: Normal, Strength/ROM Intact Neurological: Positive: Normal, Sensory/Motor Intact, Alert, Oriented to Person Place, Time Diagnostics - Vital Signs Vital Signs Temp Pulse Resp BP Pulse Ox 09/20/17 19:24 98.1 F 74 22 149/101 97 - Laboratory Lab Statement: Any lab studies that have been ordered have been reviewed, and results considered in the medical decision making process. EENT Course/Dx - Course Course Of Treatment: Possible dental abscess due to dental caries. We'll treat with penicillin and pain management. Saltwater gargles and good oral hygiene. Follow up with dentist. Also recommended [id number]-efk-[id number] topical anesthetics such as Orajel. No other concerns at this time. - Differential Diagnoses Differential Diagnoses: Dental Abscess, Dental Caries, Fractured Tooth, Other - Toothache - Diagnoses Provider Diagnoses: Pain, dental, Dental abscess Discharge - Sign-Out/Discharge Documenting (check all that apply): Patient Departure - Discharge Plan Condition: Good Disposition: HOME Prescriptions: Penicillin VK TAB* [Penicillin VK 250 mg Tab*] 500 mg PO Q6HR #21 tab traMADol TAB* [Ultram*] 50 mg PO Q12H PRN #4 tab MDD 2 PRN Reason: Pain Patient Education Materials: Dental Abscess (ED), Toothache (ED) Referrals: Raya Spence MD [Primary Care Provider] - Additional Instructions: salt water gargles. good oral hygiene. take prescribed medication as directed. ibuprofen/tylenol as needed for pain/inflammation. follow up with dentist/oral surgery in the next few days recommend probiotics in between antibiotic doses topical anesthetics such as orajel.. - Billing Disposition and Condition Condition: GOOD Disposition: Home
[2017-09-20 20:56] VITALS: BP 136/90
== END 2017-09-20 20:54 | disposition home or self-care (01) ==
LOC: ED 19:23
DX: K04.7 Periapical abscess without sinus (principal); Z88.1 Allergy status to other antibiotic agents; F17.210 Nicotine dependence, cigarettes, uncomplicated
CPT/HCPCS: 99282; A9270-GY

== ENCOUNTER 2018-03-02 04:38 | Emergency (ER) | payer OTHER ==
--- NOTE | 2018-03-02 05:05 | ED ---
GI/ HPI - HPI Summary HPI Summary: This patient is a 23 year old F presenting to [facility] with a chief complaint of vaginal bleeding since 09:00 1 day ago. The patient reports that she is passing clots and the blood is bright red. The patient rates the pain 8/10 in severity. Symptoms aggravated by nothing. Symptoms alleviated by nothing. Patient reports sharp pain on left side and diffuse cramping pain. Patient reports she had a positive home test on 02/26/18. Patient reports that she has 1 child and this is her 2nd . [facility] 01/26/18 - History of Current Complaint Chief Complaint: EDVaginalBleeding Time Seen by Provider: 03/02/18 04:51 Stated Complaint: VAGINAL BLEEDING Hx Obtained From: Patient Hx Last Menstrual Period: [id number] Onset/Duration: Started Days Ago - 1 day ago, Atraumatic, Still Present Timing: Constant Severity: Moderate Current Severity: Moderate Vaginal Bleeding Description: Bright Red Pain Intensity: 8 Location of Pain: Diffuse - diffuse cramping pain, Other - sharp left pelvic pain Pain Characteristics: Sharp, Cramping Additional Signs & Symptoms: Positive: Vaginal Bleeding, Positive Test , First Day of Last Menstral Period - 02/26/17 Aggravating Factor(s): Nothing Alleviating Factor(s): Nothing - Allergy/Home Medications Allergies/Adverse Reactions: Allergies Allergy/AdvReac Type Severity Reaction Status Date / Time azithromycin Allergy Facial Verified 03/02/18 05:08 Redness/Flushing Home Medications: Home Medications NK [No Home Medications Reported] 03/02/18 [History Confirmed 03/02/18] PMH/Surg Hx/FS Hx/Imm Hx Endocrine/Hematology History: Denies: Hx Diabetes, Hx Thyroid Disease Cardiovascular History: Denies: Hx Congestive Heart Failure, Hx Hypertension Respiratory History: Denies: Hx Asthma History: Denies: Hx Renal Disease Psychiatric History: Denies: Hx Anxiety, Hx Depression - Surgical History Surgery Procedure, Year, and Place: none reported - Immunization History Date of Tetanus Vaccine: UNK Date of Influenza Vaccine: never Infectious Disease History: No Infectious Disease History: Reports: Hx Shingles Denies: Traveled Outside the [place] in Last 30 Days - Family History Known Family History: Negative: Cardiac Disease, Hypertension, Diabetes - Social History Alcohol Use: None Hx Substance Use: No Substance Use Type: Reports: None Substance Use Comment - Amount & Last Used: daily Hx Tobacco Use: Yes Smoking Status (MU): Light Every Day Tobacco Smoker Type: Cigarettes Amount Used/How Often: 1/2 PPD Length of Time of Smoking/Using Tobacco: "years" Have You Smoked in the Last Year: Yes Review of Systems Negative: Fever Negative: Epistaxis Negative: Cough Positive: Abdominal Pain - diffuse cramping pain, sharp left pelvic pain Positive: other - vaginal bleeding All Other Systems Reviewed And Are Negative: Yes Physical Exam - Summary Physical Exam Summary: VITAL SIGNS: Reviewed. GENERAL: Patient is a well-developed and nourished FEMALE who is lying comfortable in the stretcher. Patient is not in any acute respiratory distress. HEAD AND FACE: No signs of trauma. No ecchymosis, hematomas or skull depressions. No sinus tenderness. EYES: PERRLA, EOMI x 2, No injected conjunctiva, no nystagmus. EARS: Hearing grossly intact. Ear canals and tympanic membranes are within normal limits. MOUTH: Oropharynx within normal limits. NECK: Supple, trachea is midline, no adenopathy, no JVD, no carotid bruit, no c- spine tenderness, neck with full ROM. CHEST: Symmetric, no tenderness at palpation LUNGS: Clear to auscultation bilaterally. No wheezing or crackles. CVS: Regular rate and rhythm, S1 and S2 present, no murmurs or gallops appreciated. ABDOMEN: Soft, left pelvic tenderness. No signs of distention. No rebound no guarding, and no masses palpated. Bowel sounds are normal. EXTREMITIES: FROM in all major joints, no edema, no cyanosis or clubbing. NEURO: Alert and oriented x 3. No acute neurological deficits. Speech is normal and follows commands. SKIN: Dry and warm Triage Information Reviewed: Yes Vital Signs On Initial Exam: Initial Vitals Temp Pulse Resp BP Pulse Ox 97.9 F 88 16 150/89 98 03/02/18 04:40 03/02/18 04:40 03/02/18 04:40 03/02/18 04:40 03/02/18 04:40 Vital Signs Reviewed: Yes Diagnostics - Vital Signs Vital Signs Temp Pulse Resp BP Pulse Ox 03/02/18 04:40 97.9 F 88 16 150/89 98 - Laboratory Result Diagrams: 03/02/18 05:46 03/02/18 05:46 Lab Statement: Any lab studies that have been ordered have been reviewed, and results considered in the medical decision making process. GIGU Course/Dx - Course Course Of Treatment: This patient is a 23 year old F presenting to [facility] with a chief complaint of vaginal bleeding since 09:00 1 day ago. The patient reports that she is passing clots and the blood is bright red. The patient rates the pain 8/10 in severity. Patient reports sharp pain on left side and diffuse cramping pain. Patient reports she had a positive home test on . Patient reports that she has 1 child and this is her 2nd . [facility] . Test results with no significant abnormalities. Patient will be signed out to Dr. Rodriguez upon provider shift change pending transvaginal US. - Diagnoses Provider Diagnoses: Vaginal bleeding Discharge - Sign-Out/Discharge Documenting (check all that apply): Sign-Out Patient Signing out patient TO: Diya Rodriguez - Discharge Plan Condition: Stable Referrals: Raya Spence MD [Medical Doctor] - - Attestation Statements Document Initiated by Scribe: Yes Documenting Scribe: Ayesha Arizmendi Provider For Whom Estrella is Documenting (Include Credential): Rancho Livingston MD Scribe Attestation: Ayesha Smith scribed for Rancho Livingston MD on 03/02/18 at 0654. Status of Scribe Document: Ready
[2018-03-02 05:56] LABS: ABS Basophils 0.1 10^3/ul (0-0.2); ABS Eosinophils 0.2 10^3/ul (0-0.6); ABS Lymphocytes 3.5 10^3/ul (1.0-4.8); ABS Monocytes 0.5 10^3/ul (0-0.8); ABS Neutrophils 5.8 10^3/ul (1.5-7.7); ABS Nucleated RBC 0 10^3/ul; Eosinophil % 1.8 %; Hematocrit 45 % (35-47); Hemoglobin 15.3 g/dl (12.0-16.0); Mean Corpuscular HGB Conc 34 g/dl (31-36); Mean Corpuscular Hemoglobin 32 pg (27-31); Mean Corpuscular Volume 93 fL (80-97); Mean Platelet Volume 7.9 fL (7.4-10.4); Nucleated Red Blood Cells % 0.1; Platelet Count 249 10^3/ul (150-450); Red Blood Count 4.81 10^6/ul (4.00-5.40); Red Cell Distribution Width 13 % (10.5-15); White Blood Count 10.1 10^3/ul (3.5-10.8)
[2018-03-02] MEDS ORDERED: Lactated Ringers 1000 ML Bag* 1,000 ML IV SCH (06:00)
[2018-03-02 06:03] LABS: Activated Partial Thrombo Time 33.1 seconds (26.0-36.3); INR 0.96 (0.77-1.02)
[2018-03-02 06:13] LABS: Albumin/Globulin Ratio 1.3 (1-3); BUN/Creatinine Ratio 12.3 (8-20); Calcium 9.5 mg/dL (8.6-10.3); EGFR Non-African American 97.9 (>60); Globulin 3.2 g/dL (2-4); Magnesium 1.8 mg/dL (1.9-2.7); Total Bilirubin 0.3 mg/dL (0.2-1.0); Total Protein 7.2 g/dL (6.4-8.9)
[2018-03-02 06:21] LABS: HCG Pregnancy 7.54 mIU/mL
--- NOTE | 2018-03-02 08:14 | ED ---
Progress - Progress Note Progress Note: The pt is a 23 year old female who is presenting to the [facility] with a chief complaint of vaginal bleeding. The pt was signed out by Dr. Livingston. - Results/Orders Results/Orders: Pt received a transvaginal US in the [facility]. The US as per radiologist reported stated #. No IUP visualized. #. No suspicious extraovarian adnexal region lesions or free fluid visualized. #. In absence of documented IUP in setting of positive test an ectopic is not entirely excluded. Correlate with clinical and laboratory data. The ED Physician has reviewed this radiology report. Course/Dx - Course Course Of Treatment: This patient is a 23 year old F presenting to [facility] with a chief complaint of vaginal bleeding and was signed out by Dr. Livingston. The pt received a US in the [facility]. I performed a Pelvic exam which showed bleeding from the os but no clots and os open to finger tip. Her beta HCG was taken in the [facility] and showed 7.54. A repeat beta HCG needs to be taken in 48 hours. The pt will be discharged home with a dx of vaginal bleeding during . We discussed results with patient and she reports feeling better and not in any pain. She is hemodynamically stable and safe for discharge. Strict return precautions given and she will otherwise follow up [facility]. Instructions given on ectopic /Miscarriage. She was intsructed to have her level rechecked in 48 hours - Diagnoses Provider Diagnoses: Vaginal bleeding during Discharge - Sign-Out/Discharge Documenting (check all that apply): Patient Departure - Discharged home, Receiving Sign-Out Receiving patient FROM: Rancho Livingston - Discharge Plan Condition: Stable Disposition: HOME Patient Education Materials: Ectopic (DC), Threatened Miscarriage (ED ) Forms: *Work Release Referrals: Raya Spence MD [Medical Doctor] - Mary Lou Pacheco MD [Medical Doctor] - Additional Instructions: Repeat Beta HCG should be taken within 48 hours. Follow up with [facility] as soon as possible. RETURN TO THE EMERGENCY DEPARTMENT FOR CHANGING OR WORSENING SYMPTOMS. - Billing Disposition and Condition Condition: STABLE Disposition: Home - Attestation Statements Document Initiated by Scribe: Yes Documenting Scribe: Jesús Soni Provider For Whom Scribe is Documenting (Include Credential): Dr. Diya Rodriguez Scribe Attestation: I, Jesús Soni, scribed for Dr. Diya Rodriguez on 03/02/18 at 0939. Scribe Documentation Reviewed: Yes Provider Attestation: The documentation as recorded by the alexanderibJesús feliciano accurately reflects the service I personally performed and the decisions made by me, Dr. Diya Rodriguez Status of Scribe Document: Viewed
[2018-03-02 08:55] VITALS: BP 112/78
== END 2018-03-02 08:55 | disposition home or self-care (01) ==
LOC: ED 04:38
DX: O46.90 Antepartum hemorrhage, unspecified, unspecified trimester (principal); R10.2 Pelvic and perineal pain
CPT/HCPCS: 36415; 76830; 80053; 83735; 84702; 85025; 85610; 85730; 86850; 86900; 86901; 96374; 99283

== ENCOUNTER → 2018-03-04 16:48 | Emergency (ER) | payer OTHER ==
[~2018-03-04 16:48] MED LIST: Ondansetron ODT TAB* 4 MG PO ONE
--- NOTE | 2018-03-04 17:47 | ED ---
- HPI Summary HPI Summary: Patient here for repeat hCG level. Was seen 03/02/19 years [facility] for lower abdominal pain, vaginal bleeding. HCG level 7.4. Transvaginal ultrasound negative for IUP. Patient was advised to return for repeat hCG in 2 days. Patient also states abdominal pain has since resolved down to a mild pressure and feeling of bloatedness, and vaginal bleeding is now just intermittent spotting. Denies any other pain, injury or symptoms. Medical history is none. . - History of Current Complaint Chief Complaint: EDGeneral Stated Complaint: LAB WORK Time Seen by Provider: 03/04/18 17:06 Hx Obtained From: Patient Chief Complaint: Other: Onset/Duration: Started Days Ago Timing: Intermittent, Lasting Days Current Severity: None Pain Intensity: 0 Location of Pain: None Character: None Aggravating Factors: Nothing Associated Signs and Symptoms: Positive: Vaginal Bleeding or Discharge - Assessment Hx Now: No SAB: 0 IEA: 0 - Additional Pertinent History Maternal Blood Type and Rh: O Positive - Allergies/Home Medications Allergies/Adverse Reactions: Allergies Allergy/AdvReac Type Severity Reaction Status Date / Time azithromycin Allergy Facial Verified 03/04/18 17:01 Redness/Flushing PMH/Surg Hx/FS Hx/Imm Hx Endocrine/Hematology History: Denies: Hx Diabetes, Hx Thyroid Disease Cardiovascular History: Denies: Hx Congestive Heart Failure, Hx Hypertension Respiratory History: Denies: Hx Asthma History: Denies: Hx Dialysis, Hx Renal Disease Sensory History: Denies: Hx Eye Prosthesis EENT History: Denies: Hx Deafness Neurological History: Denies: Hx Developmental Delay Psychiatric History: Denies: Hx Anxiety, Hx Depression - Surgical History Surgery Procedure, Year, and Place: none reported - Immunization History Date of Tetanus Vaccine: UNK Date of Influenza Vaccine: never Infectious Disease History: No Infectious Disease History: Reports: Hx Shingles Denies: Traveled Outside the [place] in Last 30 Days - Family History Known Family History: Negative: Cardiac Disease, Hypertension, Diabetes - Social History Alcohol Use: None Hx Substance Use: No Substance Use Type: Reports: None Substance Use Comment - Amount & Last Used: daily Hx Tobacco Use: Yes Smoking Status (MU): Light Every Day Tobacco Smoker Type: Cigarettes Amount Used/How Often: 1/2 PPD Length of Time of Smoking/Using Tobacco: "years" Have You Smoked in the Last Year: Yes Review of Systems Constitutional: Negative Eyes: Negative ENT: Negative Cardiovascular: Negative Respiratory: Negative Gastrointestinal: Negative Genitourinary: Negative Musculoskeletal: Negative Skin: Negative Neurological: Negative Psychological: Normal All Other Systems Reviewed And Are Negative: Yes Physical Exam - Physical Exam Triage Information Reviewed: Yes Vital Signs Reviewed: Yes Appearance: Positive: Well-Appearing Skin: Positive: Warm Head/Face: Positive: Normal Head/Face Inspection Eyes: Positive: Normal Neck: Positive: Supple Respiratory/Lung Sounds: Positive: Clear to Auscultation Cardiovascular: Positive: Normal Abdomen Description: Positive: Nontender Musculoskeletal: Positive: Normal Neurological: Positive: Normal Psychiatric: Positive: Normal AVPU Assessment: Alert - [place] Coma Scale Eye: 4 - Spontaneous Motor: 6 - Obeys Commands Verbal: 5 - Oriented Coma Scale Total: 15 Diagnostics - Vital Signs Vital Signs Temp Pulse Resp BP Pulse Ox 03/04/18 17:01 97 F 82 14 115/81 98 - Laboratory Lab Results: Lab Results 03/04/18 Range/Units 16:18 Beta HCG, Quant 1.47 mIU/mL Lab Statement: Any lab studies that have been ordered have been reviewed, and results considered in the medical decision making process. Course/Dx - Course Course Of Treatment: Patient here for repeat hCG level. Was seen 03/02/19 years [facility] for lower abdominal pain, vaginal bleeding. HCG level 7.4. Transvaginal ultrasound negative for IUP. Patient was advised to return for repeat hCG in 2 days. Patient also states abdominal pain has since resolved down to a mild pressure and feeling of bloatedness, and vaginal bleeding is now just intermittent spotting. Denies any other pain, injury or symptoms. Medical history is none. . Abdominal exam unremarkable. Vital signs within normal limits. Repeat hCG 1.47. Likely spontaneous miscarriage. Patient symptoms from prior visit have resolved other than intermittent spotting. Patient agrees to follow up with [facility]. - Diagnoses Provider Diagnoses: Spontaneous miscarriage Discharge - Sign-Out/Discharge Documenting (check all that apply): Patient Departure - Discharge Plan Condition: Stable Disposition: HOME Prescriptions: Promethazine TAB* [Phenergan TAB*] 25 mg PO Q8H PRN 3 Days #10 tab PRN Reason: Nausea Patient Education Materials: Miscarriage (ED) Referrals: No Primary Care Phys,NOPCP [Primary Care Provider] - Mary Lou Pacheco MD [Medical Doctor] - Additional Instructions: Follow up with [facility] Dr Pacheco. Return to the ED for any new or worsening symptoms. - Billing Disposition and Condition Condition: STABLE Disposition: Home
[2018-03-04 18:01] VITALS: BP 108/76
== END | disposition home or self-care (01) ==
LOC: ED 16:48
DX: O03.9 Complete or unspecified spontaneous abortion without complication (principal); Z88.1 Allergy status to other antibiotic agents; F17.210 Nicotine dependence, cigarettes, uncomplicated
CPT/HCPCS: 36415; 84702; 99282; A9270-GY

== ENCOUNTER 2018-04-10 03:43 | Emergency (ER) | payer OTHER ==
[2018-04-10] MEDS ORDERED: Lidocaine 2% EPI 1:200000 MPF* 10 ML VIAL INJ ONE (03:58)
[2018-04-10] MEDS ORDERED: Bupivacaine 0.5% W/EPI SDV* 10 ML VIAL INJ ONE (03:58)
[2018-04-10] MEDS ORDERED: Lidocaine 2% EPI 1:200000 MPF*10-20 ML VIAL ONE (04:02)
[2018-04-10] MEDS ORDERED: Bupivacaine 0.5% W/EPI SDV* 30 ML VIAL ONE (04:03)
[2018-04-10] MEDS ORDERED: Penicillin VK TAB* 250 MG PO ONE (04:06)
--- NOTE | 2018-04-10 04:06 | ED ---
Throat Pain/Nasal Congestion - HPI Summary HPI Summary: This patient is a 23 year old F presenting to [facility] with a chief complaint of left-sided bottom dental pain. She describes the pain as a shocking feeling. The patient rates the pain 10/10 in severity. The pain started gradually while she was at home before work and she chewed gum at work which slightly alleviated the pain. However, it has worsened severely in the past hour. - History of Current Complaint Chief Complaint: EDDentalPain Time Seen by Provider: 04/10/18 03:55 Hx Obtained From: Patient Onset/Duration: Gradual Onset, Lasting Hours Severity: Severe - Allergies/Home Medications Allergies/Adverse Reactions: Allergies Allergy/AdvReac Type Severity Reaction Status Date / Time azithromycin Allergy Facial Verified 04/10/18 03:48 Redness/Flushing PMH/Surg Hx/FS Hx/Imm Hx Endocrine/Hematology History: Denies: Hx Diabetes, Hx Thyroid Disease Cardiovascular History: Denies: Hx Congestive Heart Failure, Hx Hypertension Respiratory History: Denies: Hx Asthma History: Denies: Hx Dialysis, Hx Renal Disease Sensory History: Denies: Hx Eye Prosthesis, Hx Deafness Opthamlomology History: Denies: Hx Eye Prosthesis Neurological History: Denies: Hx Developmental Delay Psychiatric History: Denies: Hx Anxiety, Hx Depression - Surgical History Surgery Procedure, Year, and Place: none reported - Immunization History Date of Tetanus Vaccine: UNK Date of Influenza Vaccine: never Infectious Disease History: No Infectious Disease History: Reports: Hx Shingles Denies: Traveled Outside the [place] in Last 30 Days - Family History Known Family History: Negative: Cardiac Disease, Hypertension, Diabetes - Social History Alcohol Use: None Hx Substance Use: No Substance Use Type: Reports: None Substance Use Comment - Amount & Last Used: daily Hx Tobacco Use: Yes Smoking Status (MU): Light Every Day Tobacco Smoker Type: Cigarettes Amount Used/How Often: 1/2 PPD Length of Time of Smoking/Using Tobacco: "years" Have You Smoked in the Last Year: Yes Review of Systems Negative: Fever Positive: Dental Pain - Left-sided lower dental pain All Other Systems Reviewed And Are Negative: Yes Physical Exam - Summary Physical Exam Summary: Appearance: Well-appearing, Well-nourished, lying in bed comfortable Skin: Warm, dry, no obvious rash Eyes: sclera anicteric, no conjunctival pallor ENT: mucous membranes moist. Carious third molar without any pointing. Neck: deferred Respiratory: No signs of respiratory distress Cardiovascular: Appears well perfused, pulses are nml Abdomen: deferred Musculoskeletal: Moving all 4 extremities without obvious discomfort Neurological: Awake and alert, mentation is normal, speech is fluent and appropriate Psychiatric: affect is normal, does not appear anxious or depressed Triage Information Reviewed: Yes Vital Signs On Initial Exam: Initial Vitals Temp Pulse Resp BP Pulse Ox 98.2 F 118 18 152/105 97 04/10/18 03:44 04/10/18 03:44 04/10/18 03:44 04/10/18 03:44 04/10/18 03:44 Vital Signs Reviewed: Yes Diagnostics - Vital Signs Vital Signs Temp Pulse Resp BP Pulse Ox 04/10/18 03:44 98.2 F 118 18 152/105 97 - Laboratory Lab Statement: Any lab studies that have been ordered have been reviewed, and results considered in the medical decision making process. EENT Course/Dx - Course Course Of Treatment: This patient is a 23 year old F presenting to [facility] with a chief complaint of left-sided bottom dental pain. Patient was given a painkiller injection at the site of her dental pain. She has been discharged with a dx of dental pain and instructed to follow up with a dentist. - Diagnoses Provider Diagnoses: Dental abscess Discharge - Sign-Out/Discharge Documenting (check all that apply): Patient Departure - D/C Patient Received Moderate/Deep Sedation with Procedure: No - Discharge Plan Condition: Good Disposition: HOME Prescriptions: Penicillin VK TAB* [Penicillin VK 250 mg Tab*] 500 mg PO QID #40 tab Patient Education Materials: Dental Abscess (ED) Referrals: No Primary Care Phys,NOPCP [Primary Care Provider] - Additional Instructions: This should temporize things until a dentist can address the problem tooth definitively - Billing Disposition and Condition Condition: GOOD Disposition: Home - Attestation Statements Document Initiated by Rubenibe: Yes Documenting Scribe: Theo Castillo Provider For Whom Estrella is Documenting (Include Credential): Elliot Caro MD Scribe Attestation: Theo Smith scribed for Elliot Caro MD on 04/11/18 at 0449. Scribe Documentation Reviewed: Yes Provider Attestation: The documentation as recorded by the Theo tatum accurately reflects the service I personally performed and the decisions made by me, Elliot Caro MD Status of Scribe Document: Viewed
[2018-04-10 05:46] VITALS: BP 114/72
== END 2018-04-10 05:45 | disposition home or self-care (01) ==
LOC: ED 03:43
DX: K04.7 Periapical abscess without sinus (principal); Z88.1 Allergy status to other antibiotic agents; F17.210 Nicotine dependence, cigarettes, uncomplicated
CPT/HCPCS: 99282; A9270-GY

== ENCOUNTER 2018-05-30 17:06 | Emergency (ER) | payer OTHER ==
[2018-05-30 17:10] VITALS: BP 146/76
== END 2018-05-30 18:55 | disposition left against medical advice (07) ==
LOC: ED 17:06
DX: O26.91 Pregnancy related conditions, unspecified, first trimester (principal); Z3A.13 13 weeks gestation of pregnancy; R22.2 Localized swelling, mass and lump, trunk; Z53.21 Procedure and treatment not carried out due to patient leaving prior to being seen by health care provider

== ENCOUNTER 2018-05-30 18:53 | Emergency (ER) | payer OTHER ==
[2018-05-30 19:04] VITALS: BP 130/68
--- NOTE | 2018-05-30 20:31 | UC ---
Skin Complaint HPI - HPI Summary HPI Summary: DEVELOPED MIDSTERNAL CHEST PAIN YESTERDAY. THIS MORNING NOTICED A PAINFUL LUMP IN BETWEEN HER BREASTS IN THE SAME AREA. PAIN IS WORSE WITH DEEP BREATHS AND MOVEMENT. SHE DENIES ANY SHORTNESS OF BREATH, NAUSEA, SWEATS. NO FEVER. DOES A LOT OF HEAVY LIFTING AT WORK BUT DENIES ANY TRAUMA. 13 WEEKS . - History of Current Complaint Chief Complaint: UCChestPain Time Seen by Provider: 05/30/18 20:03 Stated Complaint: CHEST PAIN Hx Obtained From: Patient Hx Last Menstrual Period: [id number] Onset/Duration: Gradual Onset, Lasting Days - 1 DAY, Still Present Timing: Constant Onset Severity: Moderate Current Severity: Moderate Pain Intensity: 8 Pain Scale Used: 0-10 Numeric Location: Discrete - IN BETWEEN BREASTS Character: Pain, Redness, Raised Aggravating Factor(s): Touch Alleviating Factor(s): Nothing Associated Signs & Symptoms: Positive: Tenderness. Negative: Nausea, Fever, Cough, Wheezing - Allergy/Home Medications Allergies/Adverse Reactions: Allergies Allergy/AdvReac Type Severity Reaction Status Date / Time azithromycin Allergy Facial Verified 05/30/18 19:03 Redness/Flushing PMH/Surg Hx/FS Hx/Imm Hx Previously Healthy: Yes - Surgical History Surgical History: None Surgery Procedure, Year, and Place: none reported - Family History Known Family History: Negative: Cardiac Disease, Hypertension, Diabetes - Social History Alcohol Use: None Substance Use Type: Marijuana Substance Use Comment - Amount & Last Used: occasionally Smoking Status (MU): Light Every Day Tobacco Smoker Type: Cigarettes Amount Used/How Often: 1/2 PPD Length of Time of Smoking/Using Tobacco: "years" Have You Smoked in the Last Year: Yes Household Exposure Type: Cigarettes - Immunization History Most Recent Influenza Vaccination: unknown Most Recent Pneumonia Vaccination: unsure Vaccination Up to Date: Yes Review of Systems All Other Systems Reviewed And Are Negative: Yes Constitutional: Positive: Negative Skin: Positive: Other - ERYTHYEMA AND "LUMO" IN BETWEEN BREASTS Respiratory: Positive: Negative Cardiovascular: Positive: Chest Pain Gastrointestinal: Positive: Negative Physical Exam Triage Information Reviewed: Yes Appearance: Well-Appearing, No Pain Distress, Well-Nourished Vital Signs: Initial Vital Signs Temp 99.3 F 05/30/18 18:57 Pulse 87 05/30/18 18:57 Resp 16 05/30/18 18:57 BP 130/68 05/30/18 18:57 Pulse Ox 99 05/30/18 18:57 Vital Signs Reviewed: Yes Eyes: Positive: Conjunctiva Clear ENT: Positive: Hearing grossly normal Neck: Positive: Supple Respiratory: Positive: No respiratory distress, No accessory muscle use Cardiovascular: Positive: Pulses Normal Abdomen Description: Positive: Soft Musculoskeletal: Positive: No Edema Neurological: Positive: Alert Psychological: Positive: Age Appropriate Behavior Skin: Positive: Other - 2-3CM AREA OF TENDERNNESS, ERYTHEMA AND INDURATION IN BETWEEN BREASTS. NO FLUCTUANCE OR DRAINAGE. Course/Dx - Course Course Of Treatment: ON PHYSICAL EXAM PATIENT HAS A TENDER, ERYTHEMATOUS, INDURATED AREA IN BETWEEN HER BREASTS. CLINICALLY APPEARS TO BE A CELLULITIS. WILL TREAT SUCH WITH KEFLEX WHICH IS SAFE IN . TOPICAL BACTROBAN OINTMENT ALSO GIVEN. ADVISED PATIENT TO SEEK FOLLOW-UP IF SHE IS NOT IMPROVING AFTER 2 OR 3 DAYS ON MEDICATION. - Diagnoses Provider Diagnosis: Cellulitis of chest wall Discharge - Sign-Out/Discharge Documenting (check all that apply): Patient Departure All imaging exams completed and their final reports reviewed: No Studies - Discharge Plan Condition: Stable Disposition: HOME Prescriptions: Cephalexin CAP* [Keflex 500 CAP*] 1,000 mg PO BID #28 cap Mupirocin 2% OINT* [Bactroban 2 % Oint*] 1 applic TOPICAL BID #1 tube Patient Education Materials: Cellulitis (ED) Referrals: [facility] [Outside] - If Needed Additional Instructions: YOU HAVE A SKIN INFECTION IN BETWEEN YOUR BREASTS. TAKE THE ANTIBIOTIC TWICE DAILY FOR THE FULL 7 DAYS. KEEP THE AREA CLEAN AND DRY YOU ARE ABLE. APPLY THE ANTIBIOTIC OINTMENT TWICE DAILY. SEEK FOLLOW-UP IF YOU DEVELOP FURTHER SPREADING REDNESS OF THE SKIN, PURULENT DRAINAGE, FEVER, INCREASING PAIN OR ANY OTHER CONCERNING SYMPTOMS. NOTIFY YOUR OB OF YOUR TREATMENT AT YOUR NEXT APPOINTMENT. - Billing Disposition and Condition Condition: STABLE Disposition: Home
== END 2018-05-30 20:25 | disposition home or self-care (01) ==
LOC: UCEAST 18:53
DX: L03.313 Cellulitis of chest wall (principal); O26.891 Other specified pregnancy related conditions, first trimester; O99.331 Smoking (tobacco) complicating pregnancy, first trimester; F17.210 Nicotine dependence, cigarettes, uncomplicated; Z3A.13 13 weeks gestation of pregnancy; Z88.1 Allergy status to other antibiotic agents
CPT/HCPCS: 99212; G0463

== ENCOUNTER 2018-06-04 17:02 | Emergency (ER) | payer OTHER ==
[2018-06-04 17:16] VITALS: BP 109/56
--- NOTE | 2018-06-04 17:44 | UC ---
Skin Complaint HPI - HPI Summary HPI Summary: 23 year old female, starting second trimester presents with redness, pain at sternum between breasts. was placed on antibitoics, not sure which one , several days ago but has not noted any improvement states she has noted little "white heads" over area, which pop with minimal drainage. pain is quite severe. no fever, chills. has had abscesses in the past in other areas requiring drainage - History of Current Complaint Chief Complaint: UCSkin Time Seen by Provider: 06/04/18 17:19 Stated Complaint: SKIN COMPLAINT Hx Obtained From: Patient, Family/Lpn Rn - father of child Hx Last Menstrual Period: [id number] ?: Yes Onset/Duration: Sudden Onset, Lasting Days Skin Exposure Onset/Duration: Days Ago Onset Severity: Mild Current Severity: Severe Pain Intensity: 8 Pain Scale Used: 0-10 Numeric Location: Discrete Aggravating Factor(s): Touch Alleviating Factor(s): Nothing - Allergy/Home Medications Allergies/Adverse Reactions: Allergies Allergy/AdvReac Type Severity Reaction Status Date / Time azithromycin Allergy Facial Verified 06/06/18 17:09 Redness/Flushing PMH/Surg Hx/FS Hx/Imm Hx Previously Healthy: Yes - Surgical History Surgical History: None Surgery Procedure, Year, and Place: none reported - Family History Known Family History: Negative: Cardiac Disease, Hypertension, Diabetes - Social History Alcohol Use: None Substance Use Type: Marijuana Substance Use Comment - Amount & Last Used: occasionally Smoking Status (MU): Light Every Day Tobacco Smoker Type: Cigarettes Amount Used/How Often: 1/2 PPD Length of Time of Smoking/Using Tobacco: "years" Have You Smoked in the Last Year: Yes Household Exposure Type: Cigarettes - Immunization History Most Recent Influenza Vaccination: unknown Most Recent Pneumonia Vaccination: unsure Vaccination Up to Date: Yes Review of Systems All Other Systems Reviewed And Are Negative: Yes Skin: Positive: Rash, Other - pain Is Patient Immunocompromised?: No Physical Exam Triage Information Reviewed: Yes Appearance: Well-Appearing, No Pain Distress, Well-Nourished Vital Signs: Initial Vital Signs Temp 97.7 F 06/04/18 17:13 Pulse 97 06/04/18 17:13 Resp 18 06/04/18 17:13 BP 109/56 06/04/18 17:13 Pulse Ox 100 06/04/18 17:13 Vital Signs Reviewed: Yes Eye Exam: Normal Neck: Positive: Supple, Nontender, No Lymphadenopathy Musculoskeletal Exam: Normal Musculoskeletal: Positive: Strength Intact - UEs, ROM Intact Neurological Exam: Normal Psychological Exam: Normal Skin: Positive: Other - 3cm x 2cm erythematous indurated area without any fluctuance noted mid sternum, + warm, + TTP, no drainage noted, small white head noted, area cleaned with alcohol with small amount, small drop expressed from white head without further drainage noted. sent for cx's Course/Dx - Course Course Of Treatment: cellulitis, change antibiotics for greater MRSA coverage, discussed I&D however , no abscess seen at todays visit, continue antibioticsd, return within 2-3 days if no improvement of worsening. - Diagnoses Provider Diagnosis: Cellulitis Discharge - Sign-Out/Discharge Documenting (check all that apply): Patient Departure All imaging exams completed and their final reports reviewed: No Studies - Discharge Plan Condition: Good Disposition: HOME Prescriptions: Clindamycin HCl 300 mg PO TID #30 capsule Patient Education Materials: Cellulitis (ED) Referrals: No Primary Care Phys,NOPCP [Primary Care Provider] - Additional Instructions: - CLindamycin every 8 hours 300mg for 10 days - Follow up with [facility]PER[facility] within 3-5 days - Return for evaluation within 1-2 days - Tylenol as needed for pain - Billing Disposition and Condition Condition: GOOD Disposition: Home
== END 2018-06-04 18:12 | disposition home or self-care (01) ==
LOC: UCEAST 17:02
DX: O26.892 Other specified pregnancy related conditions, second trimester (principal); L03.313 Cellulitis of chest wall; Z3A.00 Weeks of gestation of pregnancy not specified; Z88.1 Allergy status to other antibiotic agents; F17.210 Nicotine dependence, cigarettes, uncomplicated
CPT/HCPCS: 87070; 87205; 87640; 87641; 99212; G0463

== ENCOUNTER 2018-06-06 16:55 | Emergency (ER) | payer OTHER ==
--- NOTE | 2018-06-06 17:07 | UC ---
Skin Complaint HPI - HPI Summary HPI Summary: 23 yo female presents with concerns over area to chest. She was seen about a week ago for this and dx'd with cellulitis and placed on keflex. She returned on 06/04 and was placed on clindamycin, but I am unsure what the final dx was or as to the PE as the visit note is not completed at this time. Today pt tells me that she has been taking the clindamycin, but is still having pain in the area and noticed some yellow drainage earlier today. Denies fever or chills. She is 14 weeks - History of Current Complaint Time Seen by Provider: 06/06/18 17:04 Stated Complaint: RASH Hx Last Menstrual Period: [id number] Onset/Duration: Gradual Onset Onset Severity: Moderate Current Severity: Severe Pain Intensity: 9 Pain Scale Used: 0-10 Numeric - Allergy/Home Medications Allergies/Adverse Reactions: Allergies Allergy/AdvReac Type Severity Reaction Status Date / Time azithromycin Allergy Facial Verified 06/06/18 17:09 Redness/Flushing Home Medications: Home Medications Ondansetron [Ondansetron Odt] 4 mg PO 06/06/18 [History] PMH/Surg Hx/FS Hx/Imm Hx - Additional Past Medical History Additional PMH: None - Surgical History Surgical History: None Surgery Procedure, Year, and Place: none reported - Family History Known Family History: Negative: Cardiac Disease, Hypertension, Diabetes - Social History Lives: With Family Alcohol Use: None Substance Use Type: Marijuana Substance Use Comment - Amount & Last Used: occasionally Smoking Status (MU): Light Every Day Tobacco Smoker Type: Cigarettes Amount Used/How Often: 1/2 PPD Length of Time of Smoking/Using Tobacco: "years" Have You Smoked in the Last Year: Yes Household Exposure Type: Cigarettes - Immunization History Most Recent Influenza Vaccination: unknown Most Recent Pneumonia Vaccination: unsure Vaccination Up to Date: Yes Review of Systems All Other Systems Reviewed And Are Negative: Yes Constitutional: Positive: Negative Skin: Positive: Other - Abscess chest Respiratory: Positive: Negative Cardiovascular: Positive: Negative Neurovascular: Positive: Negative Neurological: Positive: Negative Psychological: Positive: Negative Physical Exam - Summary Physical Exam Summary: GENERAL: NAD. WDWN. No pain distress. SKIN: Midline chest at sternum there is a 2.0cm abscess with erythema and induration. TTP. No active drainage. No streaking. CHEST: No accessory muscle use. Breathing comfortably and in no distress. CV: Pulses intact. Cap refill <2seconds NEURO: Alert. PSYCH: Age appropriate behavior. Triage Information Reviewed: Yes Vital Signs: Vital Signs: Temp Pulse Resp BP Pulse Ox 98.3 F 94 14 119/69 97 06/06/18 17:00 06/06/18 17:00 06/06/18 17:00 06/06/18 17:00 06/06/18 17:00 Vital Signs Reviewed: Yes Course/Dx - Course Course Of Treatment: The procedure was explained to the pt and all questions were answered. A time out was performed, witnessed, and signed. The area cleansed with an alcohol pad. 1.5mL of 2% lidocaine without epi was administered and good anesthetization was achieved. A #11 blade was used to make a 3mm linear incision at the central most point of the abscess and copious yellow purulent material was able to be expressed. Pt tolerated well. Area bandaged with telfa. Advised to continue clindamycin - still awaiting cultures. - Diagnoses Provider Diagnosis: Abscess Discharge - Sign-Out/Discharge Documenting (check all that apply): Patient Departure All imaging exams completed and their final reports reviewed: No Studies - Discharge Plan Condition: Stable Disposition: HOME Patient Education Materials: Abscess (ED) Forms: *Work Release Referrals: No Primary Care Phys,NOPCP [Primary Care Provider] - Additional Instructions: If you develop a fever, shortness of breath, chest pain, new or worsening symptoms - please call your PCP or go to the ED. Continue taking your antibiotic - Billing Disposition and Condition Condition: STABLE Disposition: Home - Attestation Statements Provider Attestation: I did not see this patient. I was available for consult.
[2018-06-06 17:09] VITALS: BP 119/69
[2018-06-06] MEDS ORDERED: Lidocaine 2% PF * 5 ML VIAL INJ ONE (17:14)
== END 2018-06-06 17:45 | disposition home or self-care (01) ==
LOC: UCEAST 16:55
DX: O26.892 Other specified pregnancy related conditions, second trimester (principal); L02.213 Cutaneous abscess of chest wall; Z3A.14 14 weeks gestation of pregnancy; Z88.1 Allergy status to other antibiotic agents; F17.210 Nicotine dependence, cigarettes, uncomplicated
CPT/HCPCS: 10060; 99201; G0463

== ENCOUNTER 2018-07-12 10:59 | Emergency (ER) | payer OTHER ==
--- OUTSIDE RECORDS SUMMARY | 2018-07-12 11:06 | XMS REPORT | Continuity of Care Document ---
:1995 External Reference #:[id number] Author Name PeteGregorio duncanisty Care Team Providers Name Role Phone Audra Kothari CNM Care Team Information Police Specialist Unavailable Payers Date Identification Numbers Payment Provider Subscriber Effective: 2015 Policy Number: [id number] [facility] Josi Smith PayID: [id number] [address] [place] [address] Effective: 2015 Policy Number: [id number] Medicaid [place] Josi Smith PayID: [id number] [address] [place] [address] Advance Directives Description No Information Available Problems Inactive Problems Provider Date Contraception Essence Oconnor CNM Onset: 11/02/2016 Inactive: 05/10/2018 Resolved Problems Dysmenorrhea Su Domingo NP Onset: 03/23/2015 Resolved: 04/07/2016 Primigravida Audra Kothari CNM Onset: 2016 Resolved: 11/02/2016 Family History Date Family Member(s) Observation Comments Father Colon Cancer Mother Breast Cancer Mother Hypertension Mother Migraine Siblings 6 4 half brothers, 2 half sisters: all A&W Paternal Grandfather A&W Paternal Grandmother Hypertension Maternal Grandfather Diabetes Maternal Grandmother [place] Maternal Grandmother Lupus Maternal Grandmother Fibromyalgia Maternal Grandmother Hypertension Social History Type Date Description Comments Sex Unknown Education Highest level completed, 11th grade Marital Status Single Lives With Daughter Lives With Boyfriend Pets None 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 Stopped with Tobacco Use Start: Unknown Patient is a current smoker, smokes every day Recreational Drug Use Current Drug User using marijuana sporadically for nausea Smoking Status Reviewed: Patient is a current 06/20/18 smoker, smokes every day Exercise Does not exercise Type/Frequency Seat Belt/Car Seat Always uses seat belt STD's Chlamydia STD's Trichomoniasis Allergies, Adverse Reactions, Alerts Active Allergies Reaction Severity Comments Date Azithromycin 2016 Inactive Allergies NKDA 03/23/2015 Medications Active Medications SIG Qnty Indications Ordering Provider Date Bonjesta 2 tablet by mouth 60tabs Audra Kothari, [facility] 05/14/2018 20-20mg at at bedtime Tablets ER History Medications Sertraline HCL 1/2 tablet for 30tabs Audra Kothari, 10/03/2016 - 50mg Tablets first 8days, then [facility] 05/14/2018 1 by mouth every day Medroxyprogesterone Acetate Bring medication 1units Audra Kothari, 2016 - to office [facility] 05/14/2018 150mg/ml Suspension appointment for injection Diclegis 2 pills by mouth 60tabs Essence Oconnor, 01/12/2016 - 10-10mg Tablets DR at bedtime [facility] 04/07/2016 Flagyl 1 by mouth twice a 14tabs Alfredo Steele 03/30/2015 - 500mg Tablets day x 7 days Uma Man 04/14/2015 No Active Medications Su Domingo, 03/23/2015 - [address] SQL DEVELOPER 03/23/2015 Aye-Be 1 by mouth every 84tabs Alfredo Steele 03/23/2015 - 0.35mg Tablets day Uma Man 01/12/2016 Naprosyn take 1 by mouth 60tabs Alfredo Steele 03/23/2015 - 500mg Tablets twice a day as Uma Man 01/12/2016 needed for pain take with food Naproxen Unknown - 2016 Complete 1 by mouth every Unknown - 14-0.4mg Tablets day 10/03/2016 Immunizations CPT Code Status Date Vaccine Lot # [id number] Given 05/24/2016 Tetnus, Diptheria Toxoids And Acellular Pertussis, [id number] PT > 7Yrs Old Vital Signs Date Vital Result Comment 06/20/2018 11:42am BP Systolic 124 mmHg BP Diastolic 78 mmHg Height 66 inches 5'6" Weight 225.00 lb BMI (Body Mass Index) 36.3 kg/m2 Last Menstrual Period [id number] 2 Parity 1 05/14/2018 9:10am BP Systolic 112 mmHg BP Diastolic 68 mmHg Height 66 inches 5'6" Weight 228.00 lb BMI (Body Mass Index) 36.8 kg/m2 Last Menstrual Period [id number] 2 Parity 1 03/04/2018 12:00am BP Systolic 108 mmHg BP Diastolic 76 mmHg Body Temperature 98.5 F Heart Rate 81 /min Respiratory Rate 16 /min Height 66 inches Weight 200.00 lb BMI (Body Mass Index) 32.3 kg/m2 03/02/2018 12:00am BP Systolic 112 mmHg BP Diastolic 78 mmHg Body Temperature 98.4 F Heart Rate 89 /min Respiratory Rate 17 /min Height 66 inches Weight 200.00 lb BMI (Body Mass Index) 32.3 kg/m2 10/03/2016 3:29pm BP Systolic 116 mmHg BP Diastolic 72 mmHg Height 66 inches 5'6" Weight 245.00 lb BMI (Body Mass Index) 39.5 kg/m2 Last Menstrual Period [id number] 1 Parity 1 01/19/2016 1:23pm BP Systolic 106 mmHg BP Diastolic 66 mmHg Height 66 inches 5'6" Weight 212.00 lb BMI (Body Mass Index) 34.2 kg/m2 Last Menstrual Period [id number] 1 Parity 0 12/24/2015 12:00am BP Systolic 158 mmHg BP Diastolic 70 mmHg Body Temperature 99.2 F Heart Rate 107 /min Respiratory Rate 18 /min Height 66 inches Weight 200.00 lb 03/23/2015 12:52pm BP Systolic 106 mmHg BP Diastolic 64 mmHg Height 65 inches 5'5" Weight 213.00 lb BMI (Body Mass Index) 35.4 kg/m2 Last Menstrual Period [id number] 0 Parity 0 Results Test Date Facility Test Result H/L Range Note Urine Drug 06/12/2018 [facility] Urine Amphetamine Negative ng/ mL 1 Comp 20 [place] [address] [phone] Urine Barbiturates Negative ng/mL 2 Urine Benzodiazepines Negative ng/mL 3 Urine Cocaine Negative ng/mL 4 Urine Phencyclidine Negative ng/mL Cutoff: 25 Urine Tetrahydrocannabinol Presumptive Posi <SEE NOTE> Abnormal Cutoff: 50 5 ng/mL Creatinine, Urine 124.5 mg/dL Specific [place] 1.011 pH 6.7 Oxidants Negative 6 Adulterants Comment Normal Codeine, Ur Not Detected ng/mL Cutoff: 25 7 Murtxek-1-bcyo-glucuronide, Ur Not Detected ng/mL 8 Morphine, Ur Not Detected ng/mL Cutoff: 25 9 Wmemflqh-9-difs-glucuronide, U Not Detected ng/mL 10 6-monoacetylmorphine, Ur Not Detected ng/mL Cutoff: 25 11 Hydrocodone, Ur Not Detected ng/mL Cutoff: 25 12 Norhydrocodone, Ur Not Detected ng/mL Cutoff: 25 13 Dihydrocodeine, Ur Not Detected ng/mL Cutoff: 25 14 Hydromorphone, Ur Not Detected ng/mL Cutoff: 25 15 Crkmgbbwndmom2zfnkaseocpqxkpp Not Detected ng/mL 16 Oxycodone, Ur Not Detected ng/mL Cutoff: 25 17 Noroxycodone, Ur Not Detected ng/mL Cutoff: 25 18 Oxymorphone, Ur Not Detected ng/mL Cutoff: 25 19 Zhjyxtyhmpv-9-ycgh-glucuronide Not Detected ng/mL 20 Noroxymorphone, Ur Not Detected ng/mL Cutoff: 25 21 Fentanyl, Ur Not Detected ng/mL Cutoff: 2 22 Norfentanyl, Ur Not Detected ng/mL Cutoff: 2 23 Meperidine, Ur Not Detected ng/mL Cutoff: 25 24 Normeperidine, Ur Not Detected ng/mL Cutoff: 25 25 Naloxone, Ur Not Detected ng/mL Cutoff: 25 26 Xayfeirl-8-yhym-glucuronide, U Not Detected ng/mL 27 Methadone, Ur Not Detected ng/mL Cutoff: 25 28 Eddp, Ur Not Detected ng/mL Cutoff: 25 29 Propoxyphene, Ur Not Detected ng/mL Cutoff: 25 30 Norpropoxyphene, Ur Not Detected ng/mL Cutoff: 25 31 Tramadol, Ur Not Detected ng/mL Cutoff: 25 32 O-desmethyltramadol, Ur Not Detected ng/mL Cutoff: 25 33 Tapentadol, Ur Not Detected ng/mL Cutoff: 25 34 N-desmethyltapentadol, Ur Not Detected ng/mL Cutoff: 50 35 Zynzijgaai-ncsn-ajutaoobddq, U Not Detected ng/mL 36 Buprenorphine, Ur Not Detected ng/mL Cutoff: 5 37 Norbuprenorphine, Ur Not Detected ng/mL Cutoff: 5 38 Norbuprenorphine glucuronide Not Detected ng/mL Cutoff: 20 39 Opioid Interpretation See Comment 40 THC Confirmation 06/12/2018 [facility] Urine Carboxy 128 ng/mL 41 [place] [address] THC Confirm [phone] Urine THC Interpretation Positive. 42 Urine Culture And 05/14/2018 [facility] Urine Culture SEE RESULT 43 [place] [address] BELOW [phone] Laboratory test 05/14/2018 [facility] TSH 1.29 mcIU/mL N 0.34 - 44 [place] [address] 5.60 [phone] T4 Free 0.70 ng/dL N 0.61-1.12 45 Parvovirus B19 05/14/2018 [facility] Parvovirus Positive Abnormal Negative Igg [place] [address] (B19) IgG [phone] Antibody Parvovirus (B19) IgM Antibody Negative Negative Parvovirus Interpretation See Comment 46 Lead 05/14/2018 [facility] Lead,Venous, B < 1.0 g/dL 0.0- 4.9 47 [place] [address] [phone] Venous/Capillary Venous Submitting Laboratory Phone [phone] HIV 1/2 AB 05/14/2018 [facility] HIV 1 2 Nonreactive Nonreactive 49 [place] [address] Antibody [phone] Type And 05/14/2018 [facility] Patient [place] [address] Blood Type [phone] Antibody Screen NEGATIVE CBC With No 05/14/2018 [facility] White Blood 9.0 10^3/uL N 3.5-10.8 [place] [address] Count [phone] Red Blood Count 4.65 10^6/uL N 3.70-4.87 Hemoglobin 14.8 g/dL N 12.0-16.0 Hematocrit 43 % High 33-41 Mean Corpuscular Volume 92 fL N 80-97 Mean Corpuscular Hemoglobin 32 pg High 27-31 Mean Corpuscular HGB Conc 35 g/dL N 31-36 Red Cell Distribution Width 14 % N 10.5-15 Platelet Count 227 10^3/uL N 150-450 Mean Platelet Volume 9.2 fL N 7.4-10.4 PNL No 05/14/2018 [facility] Rubella Screen Immune Immune 50 [place] [address] [phone] Hemoglobin A1c 5.2 % N 4.0-5.6 51 Hepatitis B Surface Ag Nonreactive Nonreactive 52 Syphillis Igg W/Reflex RPR Nonreactive Nonreactive 53 GC/Chlamydia Dna 05/14/2018 [facility] Chlamydia Negative [place] [address] trachomatis Rna [phone] Neisseria gonorrhoeae (GC) Rna Negative Negative Laboratory test 05/14/2018 [facility] Cytology SEE RESULT 54 [place] [address] BELOW [phone] CBC Auto Diff 08/09/2016 [facility] White Blood 14.5 High 3.5- 1 [place] [address] Count 10^3/uL 0.8 [phone] Red Blood Count 4.28 10^6/uL N 4.0-5.4 Hemoglobin 13.4 g/dL N 12.0-16.0 Hematocrit 39 % N 35-47 Mean Corpuscular Volume 91 fL N 80-97 Mean Corpuscular Hemoglobin 31 pg N 27-31 Mean Corpuscular HGB Conc 34 g/dL N 31-36 Red Cell Distribution Width 13 % N 10.5-15 Platelet Count 193 10^3/uL N 150-450 Mean Platelet Volume 9 um3 N 7.4-10.4 Abs Neutrophils 10.2 10^3/uL High 1.5-7.7 Abs Lymphocytes 3.2 10^3/uL N 1.0-4.8 Abs Monocytes 1.0 10^3/uL High 0-0.8 Abs Eosinophils 0.1 10^3/uL N 0-0.6 Abs Basophils 0.1 10^3/uL N 0-0.2 Abs Nucleated RBC 0.01 10^3/uL N Granulocyte % 70.5 % N 38-83 Lymphocyte % 21.8 % Low 25-47 Monocyte % 6.6 % N 1-9 Eosinophil % 0.6 % N 0-6 Basophil % 0.5 % N 0-2 Nucleated Red Blood Cells % 0 N Comp Metabolic Panel 08/09/2016 [facility] Sodium 132 mmol/L Low 133-145 [place], [place] [id number] [phone] Potassium 4.3 mmol/L N 3.5-5.0 Chloride 106 mmol/L N 101-111 Co2 Carbon Dioxide 21 mmol/L Low 22-32 Anion Gap 5 mmol/L N 2-11 Glucose 105 mg/dL High 70-100 Blood Urea Nitrogen 11 mg/dL N 6-24 Creatinine 0.60 mg/dL N 0.51-0.95 BUN/Creatinine Ratio 18.3 N 8-20 Calcium 9.1 mg/dL N 8.6-10.3 Total Protein 6.7 g/dL N 6.4-8.9 Albumin 3.5 g/dL N 3.2-5.2 Globulin 3.2 g/dL N 2-4 Albumin/Globulin Ratio 1.1 N 1-3 Total Bilirubin 0.20 mg/dL N 0.2-1.0 Alkaline Phosphatase 138 U/L High 34-104 Alt 8 U/L N 7-52 Ast 10 U/L Low 13-39 Egfr Non- 125.0 N >60 Egfr 160.8 N >60 55 Type And Screen 08/09/2016 [facility] Patient Blood [place] [address] [phone] Antibody Screen NEGATIVE N Urinalysis Profile 08/09/2016 [facility] Urine Color Yellow N [place], [place] [address] [phone] Urine Appearance Cloudy N Urine Specific [place] 1.025 N 1.010-1.030 Urine pH 6.0 N 5-9 Urine Urobilinogen Negative N Negative Urine Ketones Negative N Negative Urine Protein 1+(30 mg/dL) Abnormal Negative Urine Leukocytes 2+ Abnormal Negative Urine Blood Negative N Negative Urine Nitrite Negative N Negative Urine Bilirubin Negative N Negative Urine Glucose Negative N Negative Urine White Blood Cell 3+(>20/hpf) Abnormal Absent Urine Red Blood Cell Absent N Absent Urine Bacteria Absent N Absent Urine Squamous Epithelial Cell Present Abnormal Absent Urine Culture And 08/09/2016 [facility] Urine Culture SEE RESULT 56 [place] [address] BELOW [phone] Laboratory test 08/09/2016 [facility] Rupture of Negative N 57 [place] [address] Membranes [phone] Laboratory test 07/19/2016 [facility] Genital For GRP SEE RESULT 58 [place] [address] B Strep Only BELOW [phone] Laboratory test 07/15/2016 [facility] Rupture of Negative N 59 [place] [address] Membranes [phone] Glucose Tolerance 05/31/2016 [facility] GTT 3HR (SEE NOTE) N 60 3[place] [address] Gestational [phone] Laboratory test 05/24/2016 [facility] Glucose 1 HR 143 mg/dL N 70-1 61 [place] [address] Post Prandial 60 [phone] CBC With No Diff 05/24/2016 [facility] White Blood 12.2 10^3/uL High 3.5- [place] [address] Count 10.8 [phone] Red Blood Count 3.92 10^6/uL Low 4.0-5.4 Hemoglobin 12.5 g/dL N 12.0-16.0 Hematocrit 38 % N 35-47 Mean Corpuscular Volume 96 fL N 80-97 Mean Corpuscular Hemoglobin 32 pg High 27-31 Mean Corpuscular HGB Conc 33 g/dL N 31-36 Red Cell Distribution Width 13 % N 10.5-15 Platelet Count 175 10^3/uL N 150-450 Mean Platelet Volume 10 um3 N 7.4-10.4 Sequential Integreated SCRN 2 [place] 03/09/2016 [facility] Interpretation SEE BELOW 62 Risk For Ontd <1:5000 Age Risk Down Syndrome 1:1100 [facility] Down Syndrome Risk <1:5000 <1:270 [facility] Trisomy 18 Risk <1:5000 <1:100 Calculated Gestational Age 16.3 63 Afp,Serum 18.1 ng/mL Afp Mom 0.67 64 HCG,Serum 13.0 IU/mL HCG Mom 0.48 Estriol,Free 0.69 ng/mL Estriol Mom 0.88 Inhibin A,Dimeric 124 pg/mL Inhibin A Mom 0.86 Domenica-A 329.4 ng/mL 65 Domenica-A Mom 0.62 NT Mom 1.30 66 Referring Physician Name GELBER Referring Physician Phone NG Referring Physician Npi NG Specimen # From Part 1 [id number] Date Of 1995 Collection Date 03/09/2016 Maternal Weight 212 lbs Est'd Date Of Delivery 08/20/2016 Nuchal Translucency 1.8 mm [place] Rump Length 60 mm Ultrasound Date 2016 Nasal Bone NG Mother's Ethnic Origin WHITE Insulin Depend Diabetic NO Repeat Specimen NO Number Of Fetuses 1 HX Of Neural Tube Defects NO Twin B Nasal Bone NG 67 Sequential Integrated SCRN 1 [place] 2016 [facility] Interpretation SEE BELOW 68 Age Risk Down Syndrome 1:820 HERMINIA Down Syndrome Risk IN PROCESS <1:50 HERMINIA Trisomy 18 Risk IN PROCESS <1:100 Calculated Gestational Age 12.3 69 Domenica-A 329.4 ng/mL 70 Domenica-A Mom 0.62 HCG,Serum 41.2 IU/mL HCG Mom 0.62 NT Mom 1.30 71 Referring Physician Name KEVIN PATTERSON 72 Referring Physician Phone [phone] Referring Physician Npi [phone] Date Of 1995 75 Collection Date 2016 76 Maternal Weight 212 lbs 77 Est'd Date Of Delivery 08/20/2016 78 ALEJANDRO Determined By US 79 Mother's Ethnic Origin WHITE 80 Number Of Fetuses 1 81 Insulin Depend Diabetic NO 82 Repeat Specimen NO 83 HX Of Neural Tube Defects NO 84 Prev Down Synd NO 85 Donor Egg NO 86 Donor Age:Egg Retrieval NG 87 Ultrasound Date 2016 88 Primer Press Operator's Name KRYSTIN BABB 89 NTQR Primer Press Operator Id# [id number] NTQR Location Id# [id number] NTQR Reading Phys Id# [id number] FMF Primer Press Operator Id# NG 93 [place] Rump Length 60 mm 94 Nuchal Translucency 1.8 mm 95 Nasal Bone NG 96 If Twins NG 97 Twin B CRL NG mm 98 Twin B NT NG mm 99 Twin B Nasal Bone NG 100 Cystic Fibrosis Screen 2016 [facility] Reported Ethnicity see note 101 CF Result see note 102 Interpretation see note 103 Mutations/Polymorphisms see note 104 Method see note 105 Reviewer see note 106 Lead 01/19/2016 [facility] Lead <1.0 g/dL N 0.0-4.9 107 [place] [address] [phone] GC/Chlamydi 01/19/2016 [facility] Chlamydia Negative N Negative [place] [address] trachomatis Rna [phone] Neisseria gonorrhoeae (GC) Rna Negative N Negative Urine Culture 01/19/2016 [facility] Urine SEE RESULT 108 [place] [address] Culture BELOW Sensitivities [phone] HIV 1/2 AB 01/19/2016 [facility] HIV 1 2 Nonreactive N Nonreactive [address] [place] [address] Antibody [phone] Type And Screen 01/19/2016 [facility] [place] [address] Blood Type [phone] Antibody Screen NEGATIVE N CBC With No 01/19/2016 [facility] White Blood 11.4 10^3/uL High 3.5-10.8 [place] [address] Count [phone] Red Blood Count 4.45 10^6/uL N 4.0-5.4 Hemoglobin 14.5 g/dL N 12.0-16.0 Hematocrit 43 % N 35-47 Mean Corpuscular Volume 96 fL N 80-97 Mean Corpuscular Hemoglobin 33 pg High 27-31 Mean Corpuscular HGB Conc 34 g/dL N 31-36 Red Cell Distribution Width 14 % N 10.5-15 Platelet Count 228 10^3/uL N 150-450 Mean Platelet Volume 10 um3 N 7.4-10.4 PNL No 01/19/2016 [facility] Rubella Immune IU/mL N Immune 110 [place] [address] Screen [phone] Hemoglobin A1c 5.2 % N Less than 6.0 111 Hepatitis B Surface Ag Nonreactive N Nonreactive 112 Syphillis Igg W/Reflex RPR Nonreactive N Nonreactive 113 Laboratory Studies 12/24/2015 N2N/CCD Import Absolute Basophils 0 10^3/ul 0-0.2 (auto) Absolute Eosinophils (auto) 0.2 10^3/ul 0-0.6 Absolute Lymphocytes (auto) 3.8 10^3/ul 1.0-4.8 Absolute Monocytes (auto) 0.7 10^3/ul 0-0.8 Absolute Neutrophils (auto) 5.7 10^3/ul 1.5-7.7 Anion Gap 5 mmol/L 2-11 BUN/Creatinine Ratio 15.6 8-20 Basophils (%) (Auto) 0.3 % 0-2 Beta HCG, Quantitative 6632.00 mIU/mL Blood Urea Nitrogen 10 mg/dL 6-24 Calcium Level 9.1 mg/dL 8.6-10.3 Carbon Dioxide Level 25 mmol/L 22-32 Chloride Level 104 mmol/L 101-111 Creatinine 0.64 mg/dL 0.51-0.95 Eosinophils (%) (Auto) 1.6 % 0-6 Estimated GFR () 150.6 Estimated GFR (Non- 117.1 Glucose Level 94 mg/dL 70-100 Hematocrit 42 % 35-47 Hemoglobin 14.1 g/dL 12.0-16.0 Lymphocytes (%) (Auto) 36.7 % 25-47 Mean Corpuscular Hemoglobin 32 pg High 27-31 Mean Corpuscular Hemoglobin Concent 34 g/dL 31-36 Mean Corpuscular Volume 93 fL 80-97 Mean Platelet Volume 8 um3 7.4-10.4 Monocytes (%) (Auto) 6.5 % 1-9 Neutrophils (%) (Auto) 54.9 % 38-83 Nucleated RBC Absolute Count (auto) 0.01 10^3/ul Nucleated Red Blood Cells % 0.1 Platelet Count 207 10^3/ul 150-450 Potassium Level 3.6 mmol/L 3.5-5.0 Red Blood Count 4.44 10^6/ul 4.0-5.4 Red Cell Distribution Width 14 % 10.5-15 Sodium Level 134 mmol/L 133-145 White Blood Count 10.5 10^3/ul 3.5-10.8 Laboratory Studies 12/24/2015 N2N/CCD Import Urine Specific 1.008 Low 1.010-1.030 [place] Urine pH 6.0 5-9 Laboratory 03/23/2015 [facility] Cytology SEE RESULT 114 [place] [address] BELOW [phone] GC/Chlamydia 03/23/2015 [facility] Chlamydia Negative N [place] [address] trachomatis Rna [phone] Neisseria gonorrhoeae (GC) Rna Negative N Negative Laboratory 03/23/2015 [facility] Trichomonas Positive Abnormal Negative 115 [place] [address] vaginalis Rna [phone] 1 REFERENCE VALUE Cutoff: 500 2 REFERENCE VALUE Cutoff: 200 3 REFERENCE VALUE Cutoff: 100 4 REFERENCE VALUE Cutoff: 150 5 Presumptive Positive Drug confirmation to follow. Presumptive Positive means that the screening method is positive, but the test needs to be run by a confirmatory method before being finalized. ADDITIONAL INFORMATION This report is intended for use in clinical monitoring or management of patients. It is not intended for use in employment-related testing. 6 REFERENCE VALUE Cutoff: 200 mg/L 7 Tylenol 3 8 Metabolite of codeine REFERENCE VALUE Cutoff: 100 9 Betty Ashraf, MS Contin; Also a minor metabolite (10%) of codeine and can be seen in low concentrations (<2,000 ng/mL) with poppy seed ingestion. 10 Metabolite of morphine REFERENCE VALUE Cutoff: 100 11 Metabolite of heroin 12 Lortab, Alto, Vicodin; Also a very minor metabolite of codeine and impurity (<1%) of oxycodone. 13 Metabolite of hydrocodone 14 Metabolite of hydrocodone 15 Dilaudid, Exalgo; Also a metabolite of hydrocodone and a minor (<5%) metabolite of morphine. 16 Metabolite of hydromorphone REFERENCE VALUE Cutoff: 100 17 Endocet, Percocet, Oxycontin 18 Metabolite of oxycodone 19 Numorphan, Opana; Also a metabolite of oxycodone. 20 Metabolite of oxymorphone REFERENCE VALUE Cutoff: 100 21 Metabolite of oxymorphone 22 Actiq, Duragesic, Fentora 23 Metabolite of fentanyl 24 Demerol 25 Metabolite of meperidine 26 Narcan 27 Metabolite of naloxone REFERENCE VALUE Cutoff: 100 28 Dolophine 29 Metabolite of methadone 30 Darvon, Darvocet 31 Metabolite of propoxyphene 32 Tradol, Ultram, Ultracet 33 Metabolite of tramadol 34 Nucynta 35 Metabolite of tapentadol 36 Metabolite of tapentadol REFERENCE VALUE Cutoff: 100 37 Buprenex, Suboxone 38 Metabolite of buprenorphine 39 Metabolite of buprenorphine 40 No opioids were detected. The absence of expected drug(s) and/or drug metabolite(s) may indicate non-compliance, altered pharmacokinetics, inappropriate timing of specimen collection relative to drug administration, diluted/adulterated urine, or limitations of testing. ADDITIONAL INFORMATION This test was developed and its performance characteristics determined by [facility] in a manner consistent with CLIA requirements. This test has not been cleared or approved by the U.S. Food and Drug Administration. Test Performed by: [facility] [employer] [facility] [email or web address] [address] [place] [phone] REFERENCE VALUE Cutoff: 3.0 42 ADDITIONAL INFORMATION This report is intended for use in clinical monitoring and management of patients. It is not intended for use in employment-related testing. This test was developed and its performance characteristics determined by [facility] in a manner consistent with CLIA requirements. This test has not been cleared or approved by the U.S. Food and Drug Administration. Test Performed by: [facility] - [address] [phone] 43 SEE RESULT BELOW Name: AMERICAMIKAYLAJOSI : [address]: Iliana Kothari [facility] Acct: [id number] Unit: [id number] AGE: 23 Location: [facility] Re05/14/18 SEX: F Status: REG REF SPEC: [id number] ARIEL: 05/14/18 [facility] DR: Iliana Kothari [facility] REQ: [id number] RECD: 05/14/18 STATUS: COMP _ SOURCE: URINE SPDESC: ORDERED: Urine Culture COMMENTS: [id number] Urine Source: Random Procedure Result Reported Site Urine Culture Final 05/15/18- 1242 ML No growth of clinically significant organisms * ML - Main Lab . END OF REPORT DEPARTMENT OF PATHOLOGY, [address] [place] [address] Ian Wheat M.D. Director [facility] # [id number] 44 [id number] RESULT: Results suggest past infection. ADDITIONAL INFORMATION This test has been modified from the maintenance shop welder's instructions. Its performance characteristics were determined by [facility] in a manner consistent with CLIA requirements. This test has not been cleared or approved by the U.S. Food and Drug Administration. Test Performed by: [facility] - [address] [address] 47 ADDITIONAL INFORMATION Testing performed by Inductively Coupled Plasma-Mass Spectrometry (ICP-MS). This test was developed and its performance characteristics determined by [facility] in a manner consistent with CLIA requirements. This test has not been cleared or approved by the U.S. Food and Drug Administration. 48 Test Performed by: [facility] - [address] [id number] 49 It is recognized that currently available assays for the detection of antibodies to HIV-1 and/or HIV-2 may not detect all infected individuals. HIV antibodies may be undetectable in some stages of the infection and in some clinical conditions. The performance of this assay has not been established for populations of infants or children. Assayed by Chemiluminescence Microparticle Immunoassay on the Siemens Advia Centaur CP. Values obtained with different methods or kits cannot be used interchangeably.The diagnostic specificity of the ADVIA Centaur 1/O/2 Enhanced assay in the low risk population was 99.90% (6052/6058) with a 95% confidence interval of 99.78 to 99.96%. 50 [id number] 51 Therapeutic target for the treatment of diabetes mellitus patients is <7% HBA1C, and in selective patients <6.0%. Please refer to [place] Diabetes Association diabetic care guidelines for further information. 52 [id number] 53 Warning: A positive result is not useful for establishing a diagnosis of syphilis. In most situations, such a result may reflect a prior treated infection; a negative result can exclude a diagnosis of syphilis except for incubating or early primary disease. 54 SEE RESULT BELOW Name: JOSI SMITH : [address]: Iliana HUNT Acct: [id number] Unit: [id number] AGE: 23 Location: [facility] Re05/14/18 SEX: F Status: REG REF SPEC: [id number] ARIEL: 05/14/18-1054 [facility] DR: Iliana Kothari [facility] REQ: [id number] RECD: 05/14/181535 STATUS: SOUT _ ORDERED: TP IMAGE ANALYS, SPEECH TEACHER PHYS INTERP COMMENTS: [id number] EPITHELIAL CELL ABNORMALITIES Atypical squamous cells, cannot exclude HSIL (ASC-H) A. Ectocervical/Endocervical Specimen Adequacy: Satisfactory of evaluation Transformation zone component identified Patient Information: HPV: Thin Layer Pap Test w/reflex to high risk HPV RNA testing when ASCUS Actual Specimen Date: 05/14/18 Last Menstrual Date: 03/01/18 Date of Last Specimen: 03/23/15 ?: Y Post Menopausal?: N Hysterectomy?: N Previous Abnormal Pap Smears?:N Signed by and Reported on: Ayesha Ness MD 05/15/18 7824 This Pap test was evaluated with the assistance of the Devtoop Test Imaging System. Due to cytologic findings at the traffic ii manager microscope, comprehensive manual rescreening by a Instrumentation Engineer may be required. The Pap Smear is a screening test designed to aid in the detection of premalignant and malignant conditions of the uterine cervix. It is not a diagnostic procedure and should not be used as the sole means of detecting cervical cancer. Both false- positive and false- negative reports do occur. Depending on your risk status, a Pap smear should be obtained and evaluated every 1-3 years. END OF REPORT DEPARTMENT OF PATHOLOGY, [address] [place] [address] Ian Wheat M.D. Director [facility] # [id number] 55 Because ethnic data is not always readily available, this report includes an eGFR for both -Americans and non- Americans. The National Kidney Disease Education Program (NKDEP) does not endorse the use of the MDRD equation for patients that are not between the ages of 18 and 70, are , have extremes of body size, muscle mass, or nutritional status, or are non- or non-. According to the National Kidney Foundation, irrespective of diagnosis, the stage of the disease is based on the level of kidney function: Stage Description GFR(mL/min/1.73 m(2)) 1 Kidney damage with normal or decreased GFR 90 2 Kidney damage with mild decrease in GFR 60-89 3 Moderate decrease in GFR 30-59 4 Severe decrease in GFR 15-29 5 Kidney failure <15 (or dialysis) 56 SEE RESULT BELOW Name: JOSI SMITH : [address]: Essence Oconnor [facility] Acct: [id number] Unit: [id number] AGE: 21 Location: [facility] Re08/09/16 SEX: F Status: DEP REF SPEC: [id number] ARIEL: 08/09/16-[address]: Essence Oconnor [facility] REQ: [id number] RECD: 08/09/16 STATUS: JS CARPENTER DR: Raya Spence MD _ SOURCE: URINE SPDESC: ORDERED: Urine Culture Procedure Result Reported Site Urine Culture Final 08/12/16- 1538 ML No growth of clinically significant organisms * ML - MAIN LAB ([facility]) . END OF REPORT * ML=Testing performed at Main Lab DEPARTMENT OF PATHOLOGY, [address] [place] [address] Ian Wheat M.D. Director [facility] # [id number] 57 A NEGATIVE results indicates there is no evidence of membrane rupture. 58 SEE RESULT BELOW Name: JOSI SMITH : [address]: Iliana Kothari CNM Acct: [id number] Unit: [id number] AGE: 21 Location: [facility] Re07/19/16 SEX: F Status: REG REF SPEC: [id number] ARIEL: 07/19/16 [facility] DR: Iliana Kothari [facility] REQ: [id number] RECD: 07/19/16 STATUS: COMP _ SOURCE: CER/VAG/RE SPDESC: ORDERED: Grp B Strp Scrn COMMENTS: [id number] QUERIES: Is Patient Penicillin Allergic? N Is patient penicillin allergic and/or sensitivities needed? N Provider Requisition # C77#[id number]_ Procedure Result Reported Site Group B Strep Culture Screen Final 07/21/16- 1305 ML Group B Strep Screen Negative * ML - MAIN LAB ([facility]) . END OF REPORT * ML=Testing performed at Main Lab DEPARTMENT OF PATHOLOGY, [address] [place] [address] Ian Wheat M.D. Director [facility] # [id number] 59 A NEGATIVE results indicates there is no evidence of membrane rupture. 60 GLU Fast 91 Col: 05/31/16 1100 GLU 1HR 165 Col: 05/31/16 1200 GLU 2HR 153 Col: 05/31/16 1300 GLU 3HR 104 Col: 05/31/16 1400 GLU Interp Col: 05/31/16 1100 GTT normal ranges for obstetrics per the [place] [employer] (ACOG).Based on 100 gm glucose load: Fasting <95 mg/dl 1hr <180 mg/dl 2hr <155 mg/dl 3hr <140 mg/dl 61 [id number] 62 SCREEN NEGATIVE FOR OPEN NTD, DOWN SYNDROME AND TRISOMY 18. NT WAS USED IN THE RISK CALCULATIONS. 63 [place] rump length (CRL) was used to calculate gestational age. ALEJANDRO, if provided, was not used for gestational age dating. 64 Reference Range: <2.50 IDD <1.90 TWINS <4.00 TWINS IDD <3.50 TRIPLETS <4.50 65 This test was performed using a kit that has not been cleared or approved by the FDA. The analytical performance characteristics of this test have been determined by [facility]. This test should not be used for diagnosis without confirmation by other medically established means. 66 The Sequential Integrated Screen combines DOMENICA-A and hCG with or without a nuchal translucency measurement in the first trimester with AFP, unconjugated estriol, intact hCG and Inhibin A in the second trimester. This provides a useful screening test for detection of open neural tube defects, Down syndrome and Trisomy 18. It should be noted that normal results can never guarantee the of a normal baby and that 2 to 3 percent of newborns have some type of physical or mental defect, many of which are undetectable through any known diagnostic technique. Interpretation reviewed by: Prisca Loza, Ph.D., [facility]. This is a screening test, not a diagnostic test. This risk assessment is based on demographic data provided by the ordering physician. Please notify the laboratory promptly if any data are incorrect. If you have questions concerning this report: For clinical consultation, call ; For technical questions, call ext [phone]; For recalculations, fax to [phone]. 67 For additional information, please refer to http://education.Nomadesk.Retail Derivatives Trader/faq/FAQ94 (This link is provided for informational/educational purposes only.) 68 This patient's risk does not exceed the first trimester cut-off for Down syndrome or trisomy 18. The integrated screen calculation is awaiting the second trimester sample. NT WAS USED IN THE RISK CALCULATIONS. Thank you for submitting this patient's Part 1 specimen. These first trimester values will be incorporated with the second trimester values as part of the integrated testing process. Please submit the Part 2 specimen between 02/29/2016-04/24/2016 (15.0 and 22.9 weeks gestation) with 02/29/2016-03/13/2016 (15.0 - 16.9 weeks gestation) being optimal. When submitting Part 2, please include the following Specimen # from Part 1: [id number] 69 [place] rump length (CRL) was used to calculate gestational age. ALEJANDRO, if provided, was not used for gestational age dating. 70 This test was performed using a kit that has not been cleared or approved by the FDA. The analytical performance characteristics of this test have been determined by [facility]. This test should not be used for diagnosis without confirmation by other medically established means. 71 Interpretation reviewed by: Brent Olivier, Ph.D., [facility] This is a screening test, not a diagnostic test. This risk assessment is based on demographic data provided by the ordering physician. Please notify the laboratory promptly if any data are incorrect. If you have questions concerning this report: For clinical consultation, call ; For technical questions, call ext [phone]; For recalculations, fax to . For additional information, please refer to http://UTOPY.Enure Networks/faq/FAQ89 (This link is being provided for informational/educational purposes only.) 72 For additional information, please refer to http://UTOPY.[employer]/faq/FAQ89 (This link is being provided for informational/educational purposes only.) 73 For additional information, please refer to http://UTOPY.[employer]/faq/FAQ89 (This link is being provided for informational/educational purposes only.) 74 For additional information, please refer to http://UTOPY.[employer]/faq/FAQ89 (This link is being provided for informational/educational purposes only.) 75 For additional information, please refer to http://UTOPY.[employer]/faq/FAQ89 (This link is being provided for informational/educational purposes only.) 76 For additional information, please refer to http://UTOPY.[employer]/faq/FAQ89 (This link is being provided for informational/educational purposes only.) 77 For additional information, please refer to http://UTOPY.[employer]/faq/FAQ89 (This link is being provided for informational/educational purposes only.) 78 For additional information, please refer to http://Healthy Harvest/faq/FAQ89 (This link is being provided for informational/educational purposes only.) 79 For additional information, please refer to http://Health[employer] Harvest/faq/FAQ89 (This link is being provided for informational/educational purposes only.) 80 For additional information, please refer to http://Health[employer] Harvest/faq/FAQ89 (This link is being provided for informational/educational purposes only.) 81 For additional information, please refer to http://Health[employer] Harvest/faq/FAQ89 (This link is being provided for informational/educational purposes only.) 82 For additional information, please refer to http://Health[employer] Harvest/faq/FAQ89 (This link is being provided for informational/educational purposes only.) 83 For additional information, please refer to http://Health[employer] Harvest/faq/FAQ89 (This link is being provided for informational/educational purposes only.) 84 For additional information, please refer to http://Health[employer] Harvest/faq/FAQ89 (This link is being provided for informational/educational purposes only.) 85 For additional information, please refer to http://Health[employer] Harvest/faq/FAQ89 (This link is being provided for informational/educational purposes only.) 86 For additional information, please refer to http://Health[employer] Harvest/faq/FAQ89 (This link is being provided for informational/educational purposes only.) 87 For additional information, please refer to http://Health[employer] Harvest/faq/FAQ89 (This link is being provided for informational/educational purposes only.) 88 For additional information, please refer to http://Healthy Harvest/faq/FAQ89 (This link is being provided for informational/educational purposes only.) 89 For additional information, please refer to http://Health[employer] Harvest/faq/FAQ89 (This link is being provided for informational/educational purposes only.) 90 For additional information, please refer to http://Health[employer] Harvest/faq/FAQ89 (This link is being provided for informational/educational purposes only.) 91 For additional information, please refer to http://Healthy Harvest/faq/FAQ89 (This link is being provided for informational/educational purposes only.) 92 For additional information, please refer to http://Healthy Harvest/faq/FAQ89 (This link is being provided for informational/educational purposes only.) 93 For additional information, please refer to http://Healthy Harvest/faq/FAQ89 (This link is being provided for informational/educational purposes only.) 94 For additional information, please refer to http://Healthy Harvest/faq/FAQ89 (This link is being provided for informational/educational purposes only.) 95 For additional information, please refer to http://Healthy Harvest/faq/FAQ89 (This link is being provided for informational/educational purposes only.) 96 For additional information, please refer to http://Healthy Harvest/faq/FAQ89 (This link is being provided for informational/educational purposes only.) 97 For additional information, please refer to http://Healthy Harvest/faq/FAQ89 (This link is being provided for informational/educational purposes only.) 98 For additional information, please refer to http://Healthy Harvest/faq/FAQ89 (This link is being provided for informational/educational purposes only.) 99 For additional information, please refer to http://Healthy Harvest/faq/FAQ89 (This link is being provided for informational/educational purposes only.) 100 For additional information, please refer to http://Healthy Harvest/faq/FAQ89 (This link is being provided for informational/educational purposes only.) 101 102 NEGATIVE; NONE OF THE MUTATIONS LISTED BELOW WERE DETECTED 103 This result does not rule out the presence of a mutation or a diagnosis of cystic fibrosis disease (CF). The risk for mutations that cause CF other than the ones tested depends greatly on family history, clinical presentation, and ethnicity. Chance of Having a CF Mutation Ethnic Group Detection Before After Negative Rate Test Result Ashkenazi Hinduism 94% 1 in 24 1 in 400 Non- 88% 1 in 25 1 in 208 -Tongan 72% 1 in 46 1 in 164 -Tongan 65% 1 in 65 1 in 186 -Tongan 49% 1 in 94 1 in 184 Other insufficient data available 104 G85E (c.254G>A) R334W (c.1000C>T) 394delTT (c.262delTT) R347H (c.1040G>A) R117H (c.350G>A) R347P (c.1040G>C) 621+1 G>T (c.489+1G>T) A455E (c.1364C>A) 711+1 G>T (c.579+1G>T) 1507del (c.1519delATC) 1078delT (c.948delT) W687rim (c.1521delCTT) V520F (c.1558G>T) R553X (c.1657C>T) 1717-1 G>A (c.1585-1G>A) R560T (c.1679G>C) G542X (c.1624G>T) 1898+1 G>A (c.1766+1G>A) S549N (c.1646G>A) 2183AA>G (c.2051delAAinsG) S549R (c.1645A>C or c.1647T>G) 2184delA (c.2052delA) G551D (c.1652G>A) 2789+5 G>A (c.2657+5G>A) 3120+1 G>A (c.2988+1G>A) F1107P (c.3846G>A) E5423E (c.3484C>T) F4413D (c.3909C>G) 3659delC (c.3528delC) 3849+10kb C>T (C.9151+58259I>T) 3876delA (c.3744delA) 3905insT (c.3773insT) This assay detects thirty-two mutations, including the twenty-three core mutations recommended by the [place] [employer] (ACMG) and the [place] Congress of Obstetricians and Gynecologists (ACOG) for population-based CF carrier screening. In addition to the ACMG/ACOG panel, this assay detects nine additional mutations. While these mutations are rare in the [place] population, the scientific and medical literature indicates that these mutations are not benign polymorphisms. The status of the intron 9 (formerly intron 8) polyT tract is reported only when the R117H mutation is detected. 105 The mutations are detected by multiplex-polymerase chain reaction (PCR) amplification of specific CF gene regions, followed by nucleotide sequence analysis on a massively parallel sequencing platform. Although rare, false positive or false negative results may occur. All results should be interpreted in the context of clinical findings, relevant history, and other laboratory data. 106 Clarke Wang, Ph.D., [facility] Director, Molecular Genetics Health care providers, please contact your local [facility] genetic counselor or call [facility] ([phone]) for assistance with interpretation of these results. The analytical performance characteristics of this assay have been determined by [facility], [place], [place]. The modifications have not been cleared or approved by the FDA. This assay has been validated pursuant to the CLIA regulations and is used for clinical purposes. For more information on this test, go to http://education.Nomadesk.Retail Derivatives Trader/faq/cfscreen 107 ADDITIONAL INFORMATION Testing performed by Inductively Coupled Plasma-Mass Spectrometry (ICP-MS). This test was developed and its performance characteristics determined by [facility] in a manner consistent with CLIA requirements. This test has not been cleared or approved by the U.S. Food and Drug Administration. 108 SEE RESULT BELOW Name: JOSI SMITH : [address]: Kevin ANGLIN Acct: [id number] Unit: [id number] AGE: 20 Location: [facility] Re01/19/16 SEX: F Status: REG REF SPEC: [id number] ARIEL: 01/19/16-1346 [facility] DR: Kevin ANGLIN REQ: [id number] RECD: 01/19/16 STATUS: COMP _ SOURCE: URINE SPDESC: ORDERED: Urine Culture COMMENTS: [id number] Urine Source: Random Procedure Result Reported Site Urine Culture Final 01/20/16- 162 ML No growth of clinically significant organisms * ML - MAIN LAB ([facility]) . END OF REPORT * ML=Testing performed at Main Lab DEPARTMENT OF PATHOLOGY, [address] [place] [address] Ian Wheat M.D. Director [facility] # [id number] 109 It is recognized that currently available assays for the detection of antibodies to HIV-1 and/or HIV-2 may not detect all infected individuals. HIV antibodies may be undetectable in some stages of the infection and in some clinical conditions. The performance of this assay has not been established for populations of infants or children. Assayed by Chemiluminescence Microparticle Immunoassay on the Siemens Advia Centaur CP. Values obtained with different methods or kits cannot be used interchangeably.The diagnostic specificity of the ADVIA Centaur 1/O/2 Enhanced assay in the low risk population was 99.90% (6052/6058) with a 95% confidence interval of 99.78 to 99.96%. 110 [id number] 111 Therapeutic target for the treatment of diabetes Mellitus patients is <7% HBA1C, and in selective patients <6.0%.Please refer to [place] Diabetes Association Diabetic care guidelines for further information. 112 [id number] 113 Warning: A positive result is not useful for establishing a diagnosis of syphilis. In most situations, such a result may reflect a prior treated infection; a negative result can exclude a diagnosis of syphilis except for incubating or early primary disease. 114 SEE RESULT BELOW Name: JOSI SMITH : [address]: Su Domingo NP Acct: [id number] Unit: [id number] AGE: 20 Location: [facility] Re03/23/15 SEX: F Status: REG REF SPEC: [id number] ARIEL: 03/23/15 [facility] DR: Su Domingo [address] SQL DEVELOPER REQ: [id number] RECD: 03/23/15 STATUS: SOUT _ ORDERED: IMAGE ANALYSIS, PAP SM PATH REV FINAL DIAGNOSIS Negative for Intraepithelial lesion or Malignancy Reactive cellular changes associated with Inflammation (includes typical repair) Shift in niecy suggestive of bacterial vaginosis A. Ectocervical/Endocervical Specimen Adequacy: Satisfactory of evaluation Transformation zone component identified Patient Information: HPV: Thin Layer Pap Test w/reflex to high risk HPV RNA testing when ASCUS Actual Specimen Date: 03/23/15 Last Menstrual Date: 02/14/15 ?: N Signed (signature on file) Ayesha Ness MD 10/29 1429 This Pap test was evaluated with the assistance of the FipeoPrep Test Imaging System. Due to cytologic findings at the traffic ii manager microscope, comprehensive manual rescreening by a Instrumentation Engineer may be required. The Pap Smear is a screening test designed to aid in the detection of premalignant and malignant conditions of the uterine cervix. It is not a diagnostic procedure and should not be used as the sole means of detecting cervical cancer. Both false- positive and false- negative reports do occur. Depending on your risk status, a Pap smear should be obtained and evaluated every 1-3 years. END OF REPORT * ML=Testing performed at Main Lab DEPARTMENT OF PATHOLOGY, [address] [place] [address] Ian Wheat M.D. Director [facility] # [id number] 115 GC/Chlamydia Source?: Thin Prep Trichomonas Source: Thin Prep Procedures Date Code Description Status 05/14/2018 57029 OB Ultrasound First Trimester Completed 12/30/2016 63027 Injection Intramuscular Or Subcutaneous Completed 10/07/2016 18472 Injection Intramuscular Or Subcutaneous Completed 08/31/2016 84424 Obstetric Care Routine Completed 08/30/2016 15867 Echography Uterus Limited Completed 08/30/2016 52400 Non-Stress Test Completed 07/19/2016 43206 Echography Uterus Limited Completed 07/15/2016 70437 Non-Stress Test Completed 07/05/2016 75127 Biophysical Profile Without Non Stress Test Completed 07/05/2016 70105 Echography Uterus Follow-Up Or Repeat Completed 05/10/2016 88199 Echography Uterus Follow-Up Or Repeat Completed 04/07/2016 50495 Echography Uterus Complete Completed 2016 22753 Nuchal Translucency Ultrasound /First Gestation Completed 01/19/2016 23644 OB Ultrasound First Trimester Completed Encounters Type Date Location Provider Dx Diagnosis Office Visit 07/15/2016 [facility] Kevin Patterson, O47.9 False labor, 7:20p LM unspecified Office Visit 03/23/2015 [facility] Su Domingo NP Z01.419 Encntr for box stamper exam 1:30p (general) (routine) w/o abn findings N94.6 Dysmenorrhea, unspecified Plan of Treatment Future Appointment(s):07/17/2018 10:40 am - Essence Oconnor CNM at [facility]05/2018 10:00 am - Ultrasounds at [facility]
--- NOTE | 2018-07-12 11:52 | UC ---
Back Pain HPI - HPI Summary HPI Summary: 23-year-old female who is 19 weeks presents with onset of low back pain 2 days ago that has progressively worsened. 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 States pain is constant and sharp. Occasionally radiates down her right leg to the level of her mid thigh. Worsens with sitting and twisting. States she has also noted some intermittent lower abdominal cramping over the last couple of days. States that she has had some creamy white vaginal discharge however this is not unusual for her. Denies fever, chills, nausea, vomiting, diarrhea, dysuria, hematuria, or abnormal vaginal bleeding. She is followed by Audra Kothari, sandwich machine operator, for her . Last appointment was approximately 4 weeks ago. Has an appointment scheduled for July 17, 2018. - History of Current Complaint Chief Complaint: UCBackPain Stated Complaint: LOWER BACK PAIN Time Seen by Provider: 07/12/18 11:37 Hx Obtained From: Patient Hx Last Menstrual Period: 02/2018 Pain Intensity: 8 - Allergies/Home Medications Allergies/Adverse Reactions: Allergies Allergy/AdvReac Type Severity Reaction Status Date / Time azithromycin Allergy Facial Verified 07/12/18 11:08 Redness/Flushing Home Medications: Home Medications Acetaminophen [Non-Aspirin] 650 mg PO Q6HR PRN 07/12/18 [History Confirmed 07/12] PMH/Surg Hx/FS Hx/Imm Hx Previously Healthy: Yes - Denies siginificant PMH - Surgical History Surgical History: None Surgery Procedure, Year, and Place: none reported - Family History Known Family History: Positive: Non-Contributory - Social History Occupation: Employed Full-time Lives: Alone Alcohol Use: None Substance Use Type: Marijuana Substance Use Comment - Amount & Last Used: occasionally Smoking Status (MU): Light Every Day Tobacco Smoker Type: Cigarettes Amount Used/How Often: 1/2 PPD Length of Time of Smoking/Using Tobacco: "years" Have You Smoked in the Last Year: Yes Household Exposure Type: Cigarettes - Immunization History Most Recent Influenza Vaccination: unknown Most Recent Pneumonia Vaccination: unsure Vaccination Up to Date: Yes Review of Systems All Other Systems Reviewed And Are Negative: Yes Constitutional: Negative: Fever, Chills Skin: Negative: Rash Respiratory: Positive: Negative Cardiovascular: Positive: Negative Gastrointestinal: Negative: Abdominal Pain, Vomiting, Diarrhea, Nausea Genitourinary: Positive: Vaginal/Penile Discharge. Negative: Dysuria, Hematuria , Vaginal/Penile Burning, Vaginal/Penile Itching, Vaginal/Penile Pain, Ulceration/Lesion Motor: Negative: Weakness Neurovascular: Negative: Decreased Sensation Musculoskeletal: Positive: Other: - See HPI Neurological: Positive: Negative Is Patient Immunocompromised?: No Physical Exam - Summary Physical Exam Summary: GENERAL APPEARANCE: Well developed, well nourished, alert and cooperative, and appears to be in no acute distress. NECK: Neck supple, non-tender. CARDIAC: Normal S1 and S2. No S3, S4 or murmurs. Rhythm is regular. There is no peripheral edema, cyanosis or pallor. Extremities are warm and well perfused. Capillary refill is less than 2 seconds. Peripheral pulses intact. LUNGS: Clear to auscultation without rales, rhonchi, wheezing or diminished breath sounds. ABDOMEN: Positive bowel sounds. Soft, nondistended, nontender. No guarding or rebound. No masses or hepatosplenomegally. No CVA tenderness. MUSKULOSKELETAL: ROM intact to all extremities. No joint erythema or tenderness. Normal muscular development. Normal gait. BACK: Examination of the spine reveals normal posture, mild midline lumbar tenderness without spinal deformity or step off, mild right lumbar paraspinous tenderness without muscle spasm. NEUROLOGICAL: Strength and sensation symmetric and intact to lower extremities. SKIN: Skin normal color, texture and turgor with no lesions or eruptions. Triage Information Reviewed: Yes Vital Signs: Initial Vital Signs Temp 97.7 F 07/12/18 11:05 Pulse 119 07/12/18 11:05 Resp 18 07/12/18 11:05 BP 122/80 07/12/18 11:05 Pulse Ox 97 07/12/18 11:05 Vital Signs Reviewed: Yes Back Pain Course/Dx - Course Course Of Treatment: 23-year-old female who is 19 weeks presents with onset of low back pain 2 days ago that has progressively worsened. 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 States pain is constant and sharp. Occasionally radiates down her right leg to the level of her mid thigh. Worsens with sitting and twisting. States she has also noted some intermittent lower abdominal cramping over the last couple of days. States that she has had some creamy white vaginal discharge however this is not unusual for her. . Denies fever, chills, nausea, vomiting, diarrhea, dysuria, hematuria, or abnormal vaginal bleeding. She is followed by Audra Kothari sandwich machine operator, for her . Last appointment was approximately 4 weeks ago. Has an appointment scheduled for July 17, 2018. Afebrile. Mildly tachycardic otherwise vital signs stable. Exam revealed mild midline lumbar tenderness without spinal deformity or step off, mild right lumbar paraspinous tenderness without muscle spasm and was otherwise unremarkable. [id number] urinalysis showed 2+ leukocytes otherwise normal. Urine culture is pending. I spoke with Audra Kothari CNM, and reviewed by history and exam with her. She agrees that the back pain is likely not related and feels that the abdominal cramping is likely normal cramping associated with a second . She feels that empirical treatment for UTI is not needed at this time and will await the urine culture results before starting treatment. I reviewed my findings as well as my discussion with Audra with the patient. I am recommending continued conservative treatment for a low back strain including acetaminophen as needed for pain and heat therapy. She is to keep her appointment as scheduled on July 17 with [facility]. Anticipatory guidance and warning symptoms were reviewed with the patient. Verbalizes understanding and agrees with plan of care. - Differential Dx/Diagnosis Differential Diagnosis/HQI/PQRI: Herniated Disc, Strain, Other - UTI, labor Provider Diagnosis: Acute low back pain Discharge - Sign-Out/Discharge Documenting (check all that apply): Patient Departure All imaging exams completed and their final reports reviewed: No Studies - Discharge Plan Condition: Stable Disposition: HOME Patient Education Materials: Low Back Strain (ED) Forms: *Work Release Referrals: No Primary Care Phys,NOPCP [Primary Care Provider] - Iliana Kothari CNM [Certified Nurse [employer] Machine Operator Helper] - (As scheduled on 07/17/2018.) Additional Instructions: Your history and exam are consistent with a low back strain. I did speak with Audra Kothari CNM, who agrees that your pain is unlikely related. The urine test performed in the clinic today showed a few white blood cells which could indicate a urinary tract infection however with you not having symptoms at this time we will send the urine for a culture and treat if indicated. It typically takes 48-72 hours for us to get these results. Continue to use acetaminophen according to directions as needed for pain. Rest as much as possible however it is important with back pain that you try to remain as active as possible. Avoid heavy lifting and strenuous activities. Apply a heating pad to the affected area for 15-20 minutes at least 4 times a day to help with pain and relax the muscles. Keep your appointment with Audra Kothari CNM, as scheduled on 07/17/2018. Seek immediate medical attention in the emergency room if you develop fever greater than 100.5 F, have worsening of pain, you have severe abdominal cramping , vaginal bleeding, persistent or projectile vomiting, weakness, numbness, or tingling in the lower extremities, loss of bowel or bladder control, or any worsening of symptoms. - Billing Disposition and Condition Condition: STABLE Disposition: Home
[2018-07-12 13:06] VITALS: BP 122/67
== END 2018-07-12 13:15 | disposition home or self-care (01) ==
LOC: UCEAST 10:59
DX: O99.89 Other specified diseases and conditions complicating pregnancy, childbirth and the puerperium (principal); O99.332 Smoking (tobacco) complicating pregnancy, second trimester; M54.5 Low back pain; R10.30 Lower abdominal pain, unspecified; F17.210 Nicotine dependence, cigarettes, uncomplicated; Z88.0 Allergy status to penicillin; Z3A.19 19 weeks gestation of pregnancy
CPT/HCPCS: 81003; 87086; 99211; G0463

== ENCOUNTER 2018-08-14 20:25 | Emergency (ER) | payer OTHER ==
[2018-08-14 20:32] VITALS: BP 134/76
[2018-08-14] MEDS ORDERED: Penicillin VK TAB* 250 MG PO ONE (20:45)
--- NOTE | 2018-08-14 20:54 | UC ---
UC Dental HPI - HPI Summary HPI Summary: 23 yo female in second trimester presents with gum pain x days tooth sensitive no fever min relief with tylenol - History of Current Complaint Chief Complaint: UCGeneralIllness Stated Complaint: PAIN IN MOUTH, BURNING SENSATION IN GUMS Time Seen by Provider: 08/14/18 20:35 Hx Obtained From: Patient Hx Last Menstrual Period: 02/2018 Onset/Duration: Gradual Onset, Lasting Days Severity: Severe Pain Intensity: 8 Pain Scale Used: 0-10 Numeric Aggravating Factor(s): Heat, Cold, Chewing Alleviating Factor(s): OTC Meds Related History: Swelling Dental: 1 - abscess - Allergies/Home Medications Allergies/Adverse Reactions: Allergies Allergy/AdvReac Type Severity Reaction Status Date / Time azithromycin Allergy Facial Verified 08/14/18 20:32 Redness/Flushing PMH/Surg Hx/FS Hx/Imm Hx Previously Healthy: Yes - Surgical History Surgical History: None Surgery Procedure, Year, and Place: none reported - Family History Known Family History: Positive: Hypertension, Non-Contributory - Social History Alcohol Use: None Substance Use Type: None Substance Use Comment - Amount & Last Used: occasionally Smoking Status (MU): Current Every Day Smoker Type: Cigarettes Amount Used/How Often: 1/2 PPD Length of Time of Smoking/Using Tobacco: "years" Have You Smoked in the Last Year: Yes Household Exposure Type: Cigarettes - Immunization History Most Recent Influenza Vaccination: unknown Most Recent Pneumonia Vaccination: unsure Vaccination Up to Date: Yes Review of Systems All Other Systems Reviewed And Are Negative: Yes Constitutional: Positive: Negative Skin: Positive: Negative Eyes: Positive: Negative ENT: Positive: Dental Pain Respiratory: Positive: Negative Cardiovascular: Positive: Negative Gastrointestinal: Positive: Negative Genitourinary: Positive: Negative Motor: Positive: Negative Neurovascular: Positive: Negative Musculoskeletal: Positive: Negative Neurological: Positive: Negative Psychological: Positive: Negative Physical Exam Triage Information Reviewed: Yes Appearance: Well-Appearing, No Pain Distress, Well-Nourished Vital Signs: Initial Vital Signs Temp 98.1 F 08/14/18 20:28 Pulse 91 08/14/18 20:28 Resp 20 08/14/18 20:28 BP 134/76 08/14/18 20:28 Pulse Ox 99 08/14/18 20:28 Vital Signs Reviewed: Yes Eyes: Positive: Conjunctiva Clear ENT: Positive: Hearing grossly normal, Dental tenderness. Negative: Nasal congestion, Nasal drainage, Tonsillar swelling, Tonsillar exudate Dental: Positive: Abscess @ Neck: Positive: Nontender, No Lymphadenopathy Respiratory: Positive: Lungs clear, Normal breath sounds, No respiratory distress, No accessory muscle use Cardiovascular: Positive: RRR, No Murmur Musculoskeletal: Positive: ROM Intact, No Edema Neurological: Positive: Alert Psychological Exam: Normal Skin Exam: Normal Dental Complaint Course/Dx - Differential Dx/Diagnosis Provider Diagnosis: Dental abscess Discharge - Sign-Out/Discharge Documenting (check all that apply): Patient Departure All imaging exams completed and their final reports reviewed: No Studies - Discharge Plan Condition: Stable Disposition: HOME Prescriptions: Penicillin VK 500 MG TAB(NF) [Penicillin VK 500 mg Tab] 500 mg PO QID #28 tab Patient Education Materials: Dental Abscess (ED) Referrals: No Primary Care Phys,NOPCP [Primary Care Provider] - Additional Instructions: tylenol recheck in 2 days if not markedly better see a dentist first available appt to ER if symptoms worsen - Billing Disposition and Condition Condition: STABLE Disposition: Home
== END 2018-08-14 20:55 | disposition home or self-care (01) ==
LOC: UCEAST 20:25
DX: O99.612 Diseases of the digestive system complicating pregnancy, second trimester (principal); O99.332 Smoking (tobacco) complicating pregnancy, second trimester; Z3A.24 24 weeks gestation of pregnancy
CPT/HCPCS: 99212; A9270-GY; G0463

== ENCOUNTER 2018-11-18 13:44 | Emergency (ER) | payer OTHER ==
[2018-11-18 14:00] VITALS: BP 120/69
--- NOTE | 2018-11-18 14:17 | UC ---
Throat Pain/Nasal Hussein HPI - HPI Summary HPI Summary: 23-year-old female who is 37 weeks presents with complaints of nasal congestion, sinus pressure, postnasal drip, sore throat, and a loose productive cough for yellowish green sputum. States she had similar symptoms 2 weeks ago which did improve but then over the last 3 days symptoms have returned. Denies fever, chills, ear pain, dysphagia, chest pain, shortness of breath, abdominal pain, nausea, or vomiting. - History of Current Complaint Chief Complaint: UCRespiratory Stated Complaint: URI Time Seen by Provider: 11/18/18 14:10 Hx Obtained From: Patient Hx Last Menstrual Period: 02/2018 Pain Intensity: 0 - Allergies/Home Medications Allergies/Adverse Reactions: Allergies Allergy/AdvReac Type Severity Reaction Status Date / Time azithromycin Allergy Facial Verified 11/18/18 14:00 Redness/Flushing PMH/Surg Hx/FS Hx/Imm Hx Previously Healthy: Yes - Denies significant PMH - Surgical History Surgical History: None Surgery Procedure, Year, and Place: none reported - Family History Known Family History: Positive: Hypertension, Non-Contributory - Social History Occupation: Employed Full-time Lives: Alone Alcohol Use: None Substance Use Type: None Substance Use Comment - Amount & Last Used: occasionally Smoking Status (MU): Current Every Day Smoker Type: Cigarettes Amount Used/How Often: 1/2 PPD Length of Time of Smoking/Using Tobacco: "years" Have You Smoked in the Last Year: Yes Household Exposure Type: Cigarettes - Immunization History Most Recent Influenza Vaccination: unknown Most Recent Pneumonia Vaccination: unsure Vaccination Up to Date: Yes Review of Systems All Other Systems Reviewed And Are Negative: Yes Constitutional: Negative: Fever, Chills Skin: Negative: Rash Eyes: Negative: Drainage, Eye Redness ENT: Positive: Sore Throat, Nasal Discharge, Sinus Congestion, Sinus Pain/ Tenderness. Negative: Ear Ache Respiratory: Positive: Cough. Negative: Shortness Of Breath Cardiovascular: Negative: Chest Pain Gastrointestinal: Positive: Vomiting - post-tussive. Negative: Abdominal Pain, Diarrhea, Nausea Genitourinary: Positive: Negative Musculoskeletal: Positive: Negative Neurological: Positive: Negative Is Patient Immunocompromised?: No Physical Exam - Summary Physical Exam Summary: GENERAL APPEARANCE: Well developed, well nourished, alert and cooperative, and appears to be in no acute distress. EYES: Conjunctiva clear. No drainage. EARS: External auditory canals with moderate soft cerumen, TMs opaque with good cone of light, hearing grossly intact. NOSE: Moderate nasal congestion. No nasal discharge. THROAT: Pharyngeal erythema. 1+ tonsils without exudate or lesions. Uvula midline. NECK: Neck supple, non-tender without lymphadenopathy. CARDIAC: Normal S1 and S2. No S3, S4 or murmurs. Rhythm is regular. There is no peripheral edema, cyanosis or pallor. Extremities are warm and well perfused. Capillary refill is less than 2 seconds. Peripheral pulses intact. LUNGS: Clear to auscultation without rales, rhonchi, wheezing or diminished breath sounds. Loose, non-productive cough. MUSKULOSKELETAL: ROM intact to all extremities. No joint erythema or tenderness. Normal muscular development. Normal gait. SKIN: Skin normal color, texture and turgor with no lesions or eruptions. Triage Information Reviewed: Yes Vital Signs: Initial Vital Signs Temp 98.1 F 11/18/18 13:56 Pulse 91 11/18/18 13:56 Resp 18 11/18/18 13:56 BP 120/69 11/18/18 13:56 Pulse Ox 99 11/18/18 13:56 Vital Signs Reviewed: Yes Throat Pain/Nasal Course/Dx - Course Course Of Treatment: 23-year-old female who is 37 weeks presents with complaints of nasal congestion, sinus pressure, postnasal drip, sore throat, and a loose productive cough for yellowish green sputum. States she had similar symptoms 2 weeks ago which did improve but then over the last 3 days symptoms have returned. Denies fever, chills, ear pain, dysphagia, chest pain, shortness of breath, abdominal pain, nausea, or vomiting. Afebrile. Vital signs stable. Patient had F nasal congestion, pharyngeal erythema, 1+ tonsils without exudate, no cervical lymphadenopathy, clear bilateral breath sounds, a loose nonproductive cough, and otherwise unremarkable exam. Rapid strep test was negative. Reviewed results with the patient. Discussed with the patient that her symptoms are likely of viral origin however with her history of previous symptoms that improved and then returned could not completely rule out the possibility of a secondary bacterial infection. We discussed treating with antibiotics versus watchful waiting and symptomatic treatment and the patient is electing for the latter. She is to follow-up with her primary care provider in 5-7 days if symptoms are not improving. Anticipatory guidance and warning symptoms reviewed patient. Verbalizes understanding and agrees with plan of care. - Differential Dx/Diagnosis Differential Diagnosis/HQI/PQRI: Influenza, Otitis Media, Sinusitis, Tonsillitis , URI Provider Diagnosis: Viral URI with cough Discharge ED - Sign-Out/Discharge Documenting (check all that apply): Patient Departure All imaging exams completed and their final reports reviewed: No Studies - Discharge Plan Condition: Stable Disposition: HOME Patient Education Materials: Upper Respiratory Infection (ED) Referrals: No Primary Care Phys,NOPCP [Primary Care Provider] - Additional Instructions: Your history and exam are consistent with a viral upper respiratory infection. Viral infections do not respond to antibiotics and are limited to the treatment of symptoms. Viral infections typically run their course in 7-10 days. Drink plenty of fluids to avoid dehydration especially if you are running any fever. Use a saline rinse kit such as Neti Pot or NeilMed at least twice a day to help thin secretions and promote drainage of the sinuses. Use fluticasone (Flonase) nasal spray 2 sprays each nostril once daily. Take over the counter acetaminophen (Tylenol) or ibuprofen (Advil, Motrin) according to directions as needed for pain or fever. Use salt water gargles several times a day if you have a sore throat. You may also use Chloraseptic spray or Cepacol lonzenges according to directions which contain a numbing medication and can provide some temporary relief from your sore throat. Follow up with your primary care provider in 5-7 days if symptoms persist. Seek immediate medical attention in the emergency room if you have fever greater than 100.5 F despite taking acetaminophen or ibuprofen, have chest pain , difficulty breathing, are unable to swallow, or have any worsening of symptoms. - Billing Disposition and Condition Condition: STABLE Disposition: Home
== END 2018-11-18 15:47 | disposition home or self-care (01) ==
LOC: UCEAST 13:44
DX: O99.513 Diseases of the respiratory system complicating pregnancy, third trimester (principal); J06.9 Acute upper respiratory infection, unspecified; F17.210 Nicotine dependence, cigarettes, uncomplicated; I10 Essential (primary) hypertension; R11.10 Vomiting, unspecified; R05 Cough; Z88.1 Allergy status to other antibiotic agents; Z3A.37 37 weeks gestation of pregnancy
CPT/HCPCS: 87651; 99212; G0463

== ENCOUNTER 2018-12-06 07:45 | Inpatient (IN) | payer OTHER ==
[2018-12-06] MEDS ORDERED: Lactated Ringers 1000 ML Bag* 1,000 ML IV ONE ×2 (07:54→22:00)
[2018-12-06] MEDS ORDERED: Buffered Lidocaine 1% SYRIN* 1 ML/SYRINGE INTRADERM ONE (07:54)
[2018-12-06] MEDS ORDERED: Dinoprostone* 10 MG VAG.SUPP VAGINAL ONE (07:54)
[2018-12-06] MEDS ORDERED: Lactated Ringers 1000 ML Bag* 1,000 ML IV SCH ×2 (08:00→22:00)
[2018-12-06] MEDS ORDERED: Oxytocin in LR* 20 UNITS/1,000 ML BAG IVPB SCH (08:00)
[2018-12-06 09:07] LABS: Urine Benzodiazepine Screen None Detected (None Detect); Urine Opiates Screen None Detected (None Detect)
[2018-12-06 09:16] LABS: ABS Basophils 0.1 10^3/ul (0-0.2); ABS Eosinophils 0.1 10^3/ul (0-0.6); ABS Lymphocytes 3.1 10^3/ul (1.0-4.8); ABS Monocytes 0.7 10^3/ul (0-0.8); ABS Neutrophils 7.6 10^3/ul (1.5-7.7); Eosinophil % 0.9 %; Hematocrit 39 % (35-47); Hemoglobin 13.2 g/dL (12.0-16.0); Lymphocyte % 26.7 %; Mean Corpuscular HGB Conc 34 g/dL (31-36); Mean Corpuscular Hemoglobin 30 pg (27-31); Mean Corpuscular Volume 88 fL (80-97); Mean Platelet Volume 9.1 fL (7.4-10.4); Nucleated Red Blood Cells % 0.1; Platelet Count 243 10^3/uL (150-450); Red Blood Count 4.44 10^6 /uL (3.70-4.87); Red Cell Distribution Width 14 % (10-15); White Blood Count 11.6 10^3/uL (3.5-10.8)
--- NOTE | 2018-12-06 09:24 | HP ---
General Information - Reason for Visit 23 y/o IOL at 40w0d, complicated by umbilical varix, followed with serial USN's in [place], [place]' for delivery in [place], per MFM, varix unlikely to impact intrapartal course. - General Information Maternal Age: 23 Grav: 2 Para: 1 SAB: 0 IEA: 0 Estimated Due Date: 12/06/18 Determined By: Early Ultrasound Gestational Age in Weeks/Days: 40w0d Maternal Blood Type and Rh: O Positive - Results this Serology/RPR Result: Non-Reactive Rubella Result: Immune HBsAg Result: Negative HIV Result: Negative GBS Culture Result: Negative Past Medical History Delivery History: Hx Uncomplicated Vaginal Delivery Pertinent Past Medical History: See Records Pertinent Past Surgical History: See Records Pertinent Family History: See Records - Antepartal Records Antepartal Records: Reviewed, Complicated by: - umbilical varix Review of Systems Constitutional: Comfortable CV Complaint: No Respiratory: Shortness of Breath: No Gastrointestinal: No Nausea/Vomiting, Normal Bowel Movement Genitourinary: No Dysuria, No Bleeding, No Leaking Fluid Musculoskeletal: No Complaint, No Epigastric Pain Neurological: No Headache, No Visual Changes Movement: Normal Exam Allergies/Adverse Reactions: Allergies azithromycin Allergy (Severe, Verified 12/06/18 09:30) Swelling Of Face,Lips,& Throat T: 97.3 RR 18 Pulse 120 BP 123/77 O2 Sat 99% Lab Values - Entire Visit: Laboratory Tests 12/06/18 08:25 Urine Opiates Screen None detected Ur Barbiturates Screen None detected Ur Phencyclidine Scrn None detected Ur Amphetamines Screen None detected U Benzodiazepines Scrn None detected Urine Cocaine Screen None detected U Cannabinoids Screen None detected - Measurements Height: 5 ft 6 in Pre- Weight: 200 lb - Exam Breast: Breast Exam Deferred CVA: No CVA Tenderness Extremities: No Edema Heart: Normal Rhythm/Heart Sounds HEENT: No Significant Findings Lungs: Clear Bilaterally Rectal: Rectal Exam Deferred Reflexes: DTR 2+ Thyroid: No Thyromegaly - Abdominal Exam Abdomen Exam: Non-Tender, Fundal Height Consistent with Dates - Ultrasound/Biophysical Profile Ultrasound Status: Not Done Targeted Exam Findings Cervical Exam: 1cm Effacement: <50% Station: -3 Presenting Part: Vertex Membrane Status: Intact Bleeding/Discharge: None EFM Findings - External Monitor Findings Baseline Heart Rate: 140 External Monitor Findings: Accelerations Present, No Pattern of Variable or Late Decelerations, Variability Moderate, Baseline Stable External Monitor Findings Comment: Reactive, Moderate variability Contractions: None Assessment/Plan - Assessment 23 y/o at 40w0d, complicated by umbilical varix, followed with q 2 week USN at [facility], per [facility] unlikely to affect antepartum, intrapartum course; here for IOL at term. GBS negative RH+/Rubella Immune - Plan Plan: Induction - with Cervidil - Date/Time of Admission Date of Admission: 12/06/18 Time of Admission: 09:00
--- NOTE | 2018-12-06 14:52 | PN ---
Progress Note - Progress Note Date of Service: 12/06/18 Note: 23 y/o at 40w0d here for IOL, complicated by umbilical varix Cervidil in place since 0900 hour. FHT 140bpm, moderate, + accels, no decels Uncertain: rosa regularly FHT category I Continue to observe. Re-examine as clinically indicated. GBS negative Elvis Michaeln, OBGYN
[2018-12-06] MEDS ORDERED: Nalbuphine* 10 MG/ML 1 ML VIAL IV PRN (15:57)
[2018-12-06] MEDS ORDERED: Promethazine INJ(RESTRICTED)* 25 MG/ML 1 ML VIAL IM PRN (15:58)
--- NOTE | 2018-12-06 18:25 | PN ---
Progress Note - Progress Note Date of Service: 12/06/18
--- NOTE | 2018-12-06 20:42 | PN ---
Progress Note - Progress Note Date of Service: 12/06/18 Note: Pt re-examined. 4cm/60/-1. Cervidil removed. AROM'd with copious clear fluid. Baseline FHT 145, moderate, +accels, no decels. Category I. Pt requests Nitrous for pain, will give per self administer protocol. GBS negative. Expectant management. Anticipate vaginal delivery. Elvis Jacob, OBGYN
[2018-12-06] MEDS ORDERED: OBEPIDURAL* 250 ML EPIDURAL ONE (21:16)
[2018-12-06] MEDS ORDERED: Bupivacaine 0.25% SDV PF* 10 ML VIAL INJ ONE (21:34)
[2018-12-06] MEDS ORDERED: Famotidine TAB* 20 MG PO PRN (22:00)
[2018-12-06] MEDS ORDERED: Sodium Citrate/Citric Acid* 15 ML UDC PO PRN (22:00)
[2018-12-06] MEDS ORDERED: OBEPIDURAL* 250 ML EPIDURAL SCH (22:00)
[2018-12-06] MEDS ORDERED: Phenylephrine 40 MCG/ML SYRINGE IV PUSH PRN (22:00)
[2018-12-06] MEDS ORDERED: EPHEDrine (Pressors)* 50 MG/ML VIAL IV PUSH PRN (22:00)
[2018-12-07] MEDS ORDERED: Acetaminophen TAB* 325 MG PO PRN (01:02)
[2018-12-07] MEDS ORDERED: Glycerin ADULT SUPP PR PRN (01:02)
[2018-12-07] MEDS ORDERED: Witch Hazel PAD* JAR TOPICAL PRN (01:02)
[2018-12-07] MEDS ORDERED: Dibucaine 1% 28.35 GM TUBE PR PRN (01:02)
--- NOTE | 2018-12-07 01:12 | PROCNOTE ---
[facility] OB: Delivery Note - Delivery A Date of : 12/07/18 Time of : 00:47 [place] Sex: Female Score 1 Minute: 8 Score 5 Minutes: 9 Gestational Age in Weeks and Days at Delivery: 40 Weeks and 1 Days Delivery Method: Spontaneous Vaginal Labor: Induced Did Patient attempt ?: N/A, No Previous Amniotic Fluid: Clear Estimated Blood Loss: 250 Anesthesia/Analgesia: CEI for Labor Delivered By: Sharad Jacob JR - Nursery Level of Nursery: Regular/Bedside - Perineum Perineal Injury: None/Intact, 1st Degree Perineal Repair: None - Events Delivery Events of Note: Pitocin During Labor - Additional Delivery Notes Additional Delivery Notes: IOL at term complicated by umbilical varix followed by serial USN, not anticipated to impact labor or course per MFM. Reviewed with tea bag packer. Cervidil x 11 hours --> AROM'd with clear fluid --> epidural --> Pitocin --> Delivered through lose body cord. Intact perienuem, no vaginal lacerations. Placenta spontaneously expressed, intact. APGARS 8 and 9. Baby and mother doing well at time of this note. DO ARI Mabry
[2018-12-07] MEDS ORDERED: Lactated Ringers 1000 ML Bag* 1,000 ML IV SCH (02:00)
[2018-12-07] MEDS: Ibuprofen TAB* 600 MG PO SCH ×4 (03:13→22:37)
[2018-12-07] MEDS ORDERED: Simethicone TAB* 80 MG TAB.CHEW PO SCH (08:30)
[2018-12-07] MEDS: Docusate CAP* 100 MG PO SCH ×3 (08:54→22:40)
[2018-12-08 00:15] LABS: ABS Basophils 0.1 10^3/ul (0-0.2); ABS Eosinophils 0.2 10^3/ul (0-0.6); ABS Lymphocytes 4.1 10^3/ul (1.0-4.8); ABS Monocytes 0.8 10^3/ul (0-0.8); ABS Neutrophils 6.5 10^3/ul (1.5-7.7); Hematocrit 37 % (35-47); Hemoglobin 12.2 g/dL (12.0-16.0); Lymphocyte % 34.9 %; Mean Corpuscular HGB Conc 33 g/dL (31-36); Mean Corpuscular Hemoglobin 30 pg (27-31); Mean Corpuscular Volume 89 fL (80-97); Mean Platelet Volume 9.4 fL (7.4-10.4); Nucleated Red Blood Cells % 0.1; Platelet Count 208 10^3/uL (150-450); Red Blood Count 4.12 10^6 /uL (3.70-4.87); Red Cell Distribution Width 14 % (10-15); White Blood Count 11.6 10^3/uL (3.5-10.8)
[2018-12-08 03:54] VITALS: BP 135/78
[2018-12-08] MEDS ORDERED: Ferrous Gluconate TAB* 324 MG TAB PO SCH (09:00)
== END 2018-12-08 00:45 | disposition home or self-care (01) | DRG 560 ==
LOC: MCHOBOUT 07:45 → MCHOB 08:13
PROVIDERS: ADMIT Obstetrics & Gynecology; ATTEND Obstetrics & Gynecology
PROC: 10E0XZZ Delivery of Products of Conception, External Approach (ICD-10-PCS; principal; 2018-12-07)
PROC: 3E033VJ Introduction of Other Hormone into Peripheral Vein, Percutaneous Approach (ICD-10-PCS; 2018-12-07)
DX: O69.5XX0 Labor and delivery complicated by vascular lesion of cord, not applicable or unspecified (principal); Z37.0 Single live birth; O48.0 Post-term pregnancy; O99.334 Smoking (tobacco) complicating childbirth; O99.344 Other mental disorders complicating childbirth; F32.9 Major depressive disorder, single episode, unspecified; Z3A.40 40 weeks gestation of pregnancy
CPT/HCPCS: 36415; 80307; 85025; 86850; 86900; 86901; 88307; A9270-GY; J2300; J2550; J3490

== ENCOUNTER 2021-12-30 15:23 | Inpatient (IN) ==
[2021-12-30] MEDS ORDERED: Lactated Ringers 1000 ml BAG 1,000 ML IV ONE ×3 (17:06→23:20)
[2021-12-30 17:26] LABS: ABS Lymphocytes 1.6 10^3/ul (1.0-4.8); ABS Monocytes 0.7 10^3/ul (0-0.8); Eosinophil % 0.1 %; Hematocrit 43 % (35-47); Hemoglobin 14.7 g/dL (12.0-16.0); Lymphocyte % 8.7 %; Mean Corpuscular HGB Conc 34 g/dL (31-36); Mean Corpuscular Hemoglobin 32 pg (27-31); Mean Corpuscular Volume 93 fL (80-97); Platelet Count 237 10^3/uL (150-450); Red Blood Count 4.67 10^6 /uL (3.70-4.87); Red Cell Distribution Width 14 % (10-15); White Blood Count 18.4 10^3/uL (3.5-10.8)
[2021-12-30 17:42] LABS: Urine Appearance Cloudy; Urine Bilirubin Negative (Negative); Urine Blood 2+ (Negative); Urine Color Yellow; Urine Glucose Negative (Negative); Urine Ketones Negative (Negative); Urine Nitrite Negative (Negative); Urine Protein Negative (Negative); Urine Specific Gravity 1.012 (1.002-1.030); Urine Urobilinogen Negative (Negative)
[2021-12-30] MEDS ORDERED: Ondansetron 4 mg VIAL 2 MG/ML 2 ml VIAL IV ONE ×2 (17:43→19:16)
[2021-12-30] MEDS ORDERED: Morphine 4 MG/ML VIAL (1 ml) IV ONE ×2 (17:43→19:15)
[2021-12-30 17:48] LABS: Urine Bacteria 1+ (Absent); Urine Red Blood Cell 2+(6-10/hpf) (Absent); Urine Squamous Epithelial Cell Present (Absent); Urine White Blood Cell 3+(>20/hpf) (Absent)
[2021-12-30 18:06] LABS: ALT 16 U/L (7-52); AST 12 U/L (13-39); Albumin 4.2 g/dL (3.2-5.2); Albumin/Globulin Ratio 1.5 (1-3); Alkaline Phosphatase 88 U/L (35-149); Anion Gap 11 mmol/L (2-11); Blood Urea Nitrogen 6 mg/dL (6-24); C Reactive Protein 101.93 mg/L (<8.01); CO2 Carbon Dioxide 23 mmol/L (22-32); Calcium 9.4 mg/dL (8.6-10.3); Chloride 100 mmol/L (101-111); Globulin 2.8 g/dL (2-4); Glucose 102 mg/dL (70-100); Lipase < 10 U/L (11.0-82.0); Potassium 4.1 mmol/L (3.5-5.0); Sodium 134 mmol/L (135-145); eGFR CKD-EPI 93.6 (>60)
[2021-12-30 18:12] LABS: HCG Pregnancy < 0.60 mIU/mL
[2021-12-30] MEDS ORDERED: Iohexol 350 (CONTRAST) 500 ML MDV IV ONE (18:27)
[2021-12-30] MEDS ORDERED: cefTRIAXone 2 gm/50 mL D5W 2 GM/50 ML BAG IV ONE (19:50)
[2021-12-30] MEDS ORDERED: HYDROmorphone 1 MG/1 ML SYRINGE IV ONE (19:50)
[2021-12-30] MEDS ORDERED: Calcium Carb (TUMS) 500 mg CHEW TAB PO PRN (22:49)
[2021-12-30] MEDS ORDERED: Lactated Ringers 1000 ml BAG 1,000 ML IV SCH (23:45)
[2021-12-31] MEDS: Ondansetron 4 mg VIAL 2 MG/ML 2 ml VIAL IV PRN ×2 (03:20→07:19)
[2021-12-31] MEDS: Acetaminophen IV 1 GM/100ML 1,000 MG/100 ML BAG IV PRN (03:35)
[2021-12-31 05:19] LABS: ABS Lymphocytes 1.5 10^3/ul (1.0-4.8); ABS Neutrophils 17.3 10^3/ul (1.5-7.7); Hematocrit 39 % (35-47); Hemoglobin 12.9 g/dL (12.0-16.0); Lymphocyte % 7.5 %; Mean Corpuscular HGB Conc 34 g/dL (31-36); Mean Corpuscular Hemoglobin 31 pg (27-31); Mean Corpuscular Volume 93 fL (80-97); Mean Platelet Volume 8.2 fL (7.4-10.4); Platelet Count 192 10^3/uL (150-450); Red Blood Count 4.14 10^6 /uL (3.70-4.87); Red Cell Distribution Width 14 % (10-15); White Blood Count 19.8 10^3/uL (3.5-10.8)
[2021-12-31 05:53] LABS: Calcium 8.2 mg/dL (8.6-10.3); Potassium 3.6 mmol/L (3.5-5.0); eGFR CKD-EPI 122.3 (>60)
[2021-12-31] MEDS ORDERED: Lactated Ringers 1000 ml BAG 500 ML IV ONE (09:28)
[2021-12-31] MEDS ORDERED: cefTRIAXone 2 GM ADDV.VIAL 2 GM in NS 0.9% 100 ml BAG 100 ML IV SCH (20:00)
[2021-12-31] MEDS ORDERED: cefTRIAXone 2 gm/50 mL D5W 2 GM/50 ML BAG IV SCH (20:00)
[2022-01-01] MEDS: Ondansetron 4 mg VIAL 2 MG/ML 2 ml VIAL IV PRN ×2 (00:53→07:39)
[2022-01-01 06:46] LABS: ABS Lymphocytes 2.3 10^3/ul (1.0-4.8); ABS Monocytes 0.4 10^3/ul (0-0.8); ABS Neutrophils 9.8 10^3/ul (1.5-7.7); Eosinophil % 0.3 %; Hematocrit 37 % (35-47); Hemoglobin 12.4 g/dL (12.0-16.0); Lymphocyte % 18.1 %; Mean Corpuscular HGB Conc 34 g/dL (31-36); Mean Corpuscular Hemoglobin 32 pg (27-31); Mean Corpuscular Volume 93 fL (80-97); Mean Platelet Volume 8.4 fL (7.4-10.4); Nucleated Red Blood Cells % 0.1; Platelet Count 171 10^3/uL (150-450); Red Blood Count 3.93 10^6 /uL (3.70-4.87); Red Cell Distribution Width 14 % (10-15); White Blood Count 12.4 10^3/uL (3.5-10.8)
[2022-01-01] MEDS: Acetaminophen IV 1 GM/100ML 1,000 MG/100 ML BAG IV PRN (07:39)
[2022-01-01 08:07] LABS: Calcium 8.5 mg/dL (8.6-10.3); Potassium 4.2 mmol/L (3.5-5.0)
[2022-01-01 08:13] LABS: eGFR CKD-EPI 110.1 (>60)
[2022-01-01 14:46] VITALS: BP 105/72
[2022-01-01] MEDS ORDERED: cefTRIAXone 1 gm/50 mL D5W 1 GM/50 ML BAG IV SCH (21:00)
== END 2022-01-01 15:47 | disposition home or self-care (01) | DRG 720 ==
LOC: ED 15:23 → SUATTDRO 22:46 → EDHOLD 22:46 → MED 12-31 14:13
PROVIDERS: ADMIT Student in an Organized Health Care Education/Training Program; ATTEND Hospitalist

== ENCOUNTER 2023-10-07 11:06 | Inpatient (IN) ==
[2023-10-07] MEDS ORDERED: Lidocaine 1% VIAL 10 MG/ML 30 ML VIAL INJ PRN (11:20)
[2023-10-07] MEDS ORDERED: Buffered Lidocaine 1% SYRIN 1 ml INTRADERM ONE (11:20)
[2023-10-07] MEDS: Lactated Ringers 1000 ml BAG 1,000 ML IV ONE (11:27)
[2023-10-07] MEDS ORDERED: Lidocaine 1.5% EPI 1:200,000 30 ML SDV ONE ×2 (11:37→11:38)
[2023-10-07] MEDS ORDERED: Phenylephrine 40 mcg/mL 10mL (400mcg) SYRINGE ONE (11:37)
[2023-10-07 11:39] LABS: ABS Basophils 0.1 10^3/uL (0.0-0.1); ABS Eosinophils 0.1 10^3/uL (0.0-0.5); ABS Lymphocytes 2.5 10^3/uL (1.0-4.8); ABS Monocytes 0.6 10^3/uL (0.0-0.9); ABS Neutrophils 9.7 10^3/uL (1.5-7.6); Eosinophil % 0.9 %; Hematocrit 37.9 % (35-45); Hemoglobin 12.8 g/dL (11.5-14.3); Lymphocyte % 19.6 %; Mean Corpuscular Hemoglobin 29.9 pg (27-33); Mean Corpuscular Hgb Conc 33.6 g/dL (31-36); Mean Corpuscular Volume 88.8 fL (80-97); Mean Platelet Volume 9.3 fL (7.5-11.2); Platelet Count 253 10^3/uL (150-450); Red Blood Count 4.27 10^6/uL (3.63-4.92); Red Cell Distribution Width 14.6 % (12-17)
[2023-10-07] MEDS: Lactated Ringers 1000 ml BAG 1,000 ML IV SCH (11:56)
[2023-10-07 12:05] LABS: Urine Benzodiazepine Screen None Detected (None Detect); Urine Cannabinoids Screen None Detected (None Detect); Urine Opiates Screen None Detected (None Detect)
[2023-10-07] MEDS: OBEPIDURAL (200 ML) 200 ML EPIDURAL ONE (12:40)
[2023-10-07] MEDS ORDERED: Lactated Ringers 1000 ml BAG 1,000 ML IV ONE (12:46)
[2023-10-07] MEDS ORDERED: Phenylephrine 40 mcg/mL 10mL (400mcg) SYRINGE IV PUSH PRN ×2 (12:46)
[2023-10-07] MEDS ORDERED: Sodium Citrate/Citric Acid LIQ 15 ML UDC PO PRN (12:46)
[2023-10-07] MEDS ORDERED: Lidocaine 2% w/ EPI 1:200,000 MPF 20 ML SDV VIAL ONE (12:51)
[2023-10-07] MEDS ORDERED: OBEPIDURAL (200 ML) 200 ML EPIDURAL SCH (13:00)
[2023-10-07] MEDS ORDERED: Lactated Ringers 1000 ml BAG 1,000 ML IV SCH ×2 (13:00→17:00)
[2023-10-07 14:37] LABS: Urine Appearance Clear; Urine Bilirubin Negative (Negative); Urine Blood Trace (Negative); Urine Color Light-Yellow; Urine Glucose Negative (Negative); Urine Ketones 2+ (Negative); Urine Nitrite Negative (Negative); Urine Protein Negative (Negative); Urine Urobilinogen Negative (Negative)
[2023-10-07 14:59] LABS: Urine Bacteria 1+ /HPF (Absent); Urine Red Blood Cell 1+(3-5/hpf) /HPF (0-Trace); Urine Squamous Epithelial Cell Present /HPF (Absent); Urine White Blood Cell Trace(0-5/hpf) /HPF (0-Trace)
[2023-10-07] MEDS ORDERED: Oxytocin in LR 20,000 MILLI.UNIT/1,000 ML BAG IV ONE (16:23)
[2023-10-07] MEDS: Oxytocin in LR 20,000 MILLI.UNIT/1,000 ML BAG IV SCH (16:27)
[2023-10-07] MEDS ORDERED: Glycerin ADULT 2.4 gm SUPP PR PRN (16:35)
[2023-10-07] MEDS: Witch Hazel PAD JAR TOPICAL PRN (17:53)
[2023-10-07] MEDS: Dibucaine 1% OINT 28.35 GM TUBE PR PRN (17:53)
[2023-10-08 06:54] LABS: ABS Eosinophils 0.2 10^3/uL (0.0-0.5); ABS Lymphocytes 3.3 10^3/uL (1.0-4.8); ABS Monocytes 0.7 10^3/uL (0.0-0.9); Hematocrit 33.1 % (35-45); Mean Corpuscular Hemoglobin 29.4 pg (27-33); Mean Corpuscular Hgb Conc 33.2 g/dL (31-36); Mean Corpuscular Volume 88.5 fL (80-97); Mean Platelet Volume 9.1 fL (7.5-11.2); Platelet Count 214 10^3/uL (150-450); Red Blood Count 3.74 10^6/uL (3.63-4.92); Red Cell Distribution Width 14.5 % (12-17); White Blood Count 12.2 10^3/uL (3.8-11.8)
[2023-10-08 17:14] VITALS: BP 113/66
== END 2023-10-08 18:09 | disposition home or self-care (01) | DRG 560 ==
LOC: MCHOBOUT 11:06 → MCHOB 11:15
PROVIDERS: ADMIT Midwife; ATTEND Midwife